=== PATIENT | female | born 1945 | race Caucasian/White ===

== ENCOUNTER → 2018-02-24 07:45 | Outpatient (CLI) | payer MEDICARE, OTHER, SELFPAY ==
[2018-02-24 08:11] LABS: Hematocrit 31.7 % (36-46); Hemoglobin 10.6 g/dL (12.0-16.0)
[2018-02-24 08:40] LABS: HEMOLYSIS < 15 (0-50)
[2018-02-24 08:46] LABS: Iron 29 ug/dL (37-170)
[2018-02-24 08:53] LABS: Cholesterol 216 mg/dL (140-199); HDL Cholesterol 78 mg/dL (40-60); LDL Cholesterol Calculated 118 mg/dL (<100); Triglycerides 101 mg/dL (35-150)
[2018-02-24 08:59] LABS: Percent Iron Saturation 7 % (15-50); Total Iron Binding Capacity 428 ug/dL (265-497); Transferrin 338 mg/dL (206-381)
[2018-02-24 09:17] LABS: Thyroid Stimulating Hormone 2.01 uIU/mL (0.47-4.68)
[2018-02-24 09:21] LABS: Ferritin 7.5 ng/mL (11.1-264)
[2018-02-24 10:07] LABS: Free T4, Direct Thyroxine 1.26 ng/dL (0.78-2.19)
== END ==
PROVIDERS: PCP Physician Assistant; Visit Provider Physician Assistant
DX: D64.9 Anemia, unspecified (principal); E78.5 Hyperlipidemia, unspecified; E03.9 Hypothyroidism, unspecified; R53.83 Other fatigue
CPT/HCPCS: 36415; 80061; 82728; 83540; 83550; 84439; 84443; 85014; 85018

== ENCOUNTER → 2018-06-10 10:48 | Outpatient (CLI) | payer MEDICARE, OTHER, SELFPAY ==
[2018-06-10 12:06] LABS: Hematocrit 39.6 % (36-46); Hemoglobin 13.3 g/dL (12.0-16.0)
[2018-06-10 12:23] LABS: HEMOLYSIS < 15 (0-50); Iron 82 ug/dL (37-170)
[2018-06-10 12:35] LABS: Percent Iron Saturation 25 % (15-50); Total Iron Binding Capacity 325 ug/dL (265-497); Transferrin 276 mg/dL (206-381)
== END ==
PROVIDERS: PCP Physician Assistant; Visit Provider Physician Assistant
DX: D50.9 Iron deficiency anemia, unspecified (principal)
CPT/HCPCS: 36415; 82728; 83540; 83550; 85014; 85018

== ENCOUNTER → 2018-06-22 07:59 | Outpatient (CLI) | payer MEDICARE, OTHER, SELFPAY ==
--- NOTE | 2018-06-22 | DI.MG.S_ITS ---
BILATERAL DIGITAL SCREENING MAMMOGRAM 3D/2D WITH CAD: 06/22/2018 CLINICAL: Routine screening. Family history of breast cancer. Comparison is made to exams dated: 06/21/2017 mammogram, 06/05/2016 mammogram, and 05/23/2015 mammogram - [facility]. The tissue of both breasts is heterogeneously dense. This may lower the sensitivity of mammography. Current study was also evaluated with a Computer Aided Detection (CAD) system. No significant masses, calcifications, or other findings are seen in either breast. There has been no significant interval change. IMPRESSION: NEGATIVE There is no mammographic evidence of malignancy. A 1 year screening mammogram is recommended.(06/23/2019) This exam was interpreted at Station ID: [id number]. NOTE: For mammograms, a report in lay terms will be sent to the patient. Approximately 15% of breast malignancies will not be visualized mammographically. In the management of a palpable breast mass, a negative mammogram must not discourage biopsy of a clinically suspicious lesion. Electronically Signed By: Vin hernandez/zurdo:06/22/2018 09:23:54 letter sent: Normal Exam ACR BI-RADS Category 1: Negative [id number]
== END ==
PROVIDERS: PCP Physician Assistant; Visit Provider Physician Assistant
DX: Z12.31 Encounter for screening mammogram for malignant neoplasm of breast (principal); Z80.3 Family history of malignant neoplasm of breast
CPT/HCPCS: 77063; 77067

== ENCOUNTER → 2018-08-24 13:13 | Outpatient (CLI) | payer MEDICARE, OTHER, SELFPAY ==
[2018-08-24 14:27] LABS: Thyroid Stimulating Hormone 1.89 uIU/mL (0.47-4.68)
[2018-08-24 16:19] LABS: Vitamin D 25 Hydroxy (D3) 34.7 ng/mL (30.0-100.0)
== END ==
PROVIDERS: PCP Physician Assistant; Visit Provider Physician Assistant
DX: E03.9 Hypothyroidism, unspecified (principal); R53.83 Other fatigue; M81.0 Age-related osteoporosis without current pathological fracture
CPT/HCPCS: 36415; 82306; 84443

== ENCOUNTER → 2019-04-07 07:12 | Outpatient (CLI) | payer MEDICARE, OTHER, SELFPAY ==
[2019-04-07 07:40] LABS: Add Manual Diff / Slide Review NO; Basophils Absolute Auto 100 /uL (0-100); Basophils Percent Auto 1.1 % (0-2); Eosinophils Absolute Auto 300 /uL (0-450); Eosinophils Percent Auto 6.4 % (2-4); Hematocrit 40.5 % (36-46); Hemoglobin 13.7 g/dL (12.0-16.0); Lymphocytes Absolute Auto 1100 /uL (1100-4500); Lymphocytes Percent Auto 22.9 % (25-40); Mean Corpuscular HGB Conc 33.8 % (30-36); Mean Corpuscular Hemoglobin 30.6 PG (26-34); Mean Corpuscular Volume 90.5 fL (80-100); Monocytes Absolute Auto 400 /uL (0-900); Neutrophils Absolute Auto 2900 /uL (1500-7000); Neutrophils Percent Auto 61.6 % (50-75); Platelet Count 282 X10^3/uL (150-400); Red Blood Cell Count 4.48 X10^6/uL (4.0-5.2); Red Cell Distribution Width 13.3 % (11.6-14.8); White Blood Cell Count 4.7 X10^3/uL (4.5-11.0)
[2019-04-07 07:56] LABS: Alanine Aminotransferase 18 IU/L (9-52); Albumin 4.4 g/dL (3.5-5.0); Albumin Globulin Ratio 1.4 (1.0-2.8); Alkaline Phosphatase 71 U/L (38-126); Aspartate Aminotransferase 26 IU/L (14-36); BUN Creatinine Ratio 18.6 (6-22); Bilirubin Total 0.5 mg/dL (0.2-1.3); Blood Urea Nitrogen 13 mg/dL (7-17); Calcium 9.5 mg/dL (8.4-10.2); Carbon Dioxide 31 mmol/L (22-32); Chloride 103 mmol/L (98-107); Cholesterol 239 mg/dL (140-199); Estimated Glomerular Filt Rate > 60.0 mL/min (>60); Globulin 3.1 g/dL (1.7-4.1); Glucose 95 mg/dL (80-110); HDL Cholesterol 69 mg/dL (40-60); HEMOLYSIS < 15 (0-50); LDL Cholesterol Calculated 138 mg/dL (<100); Potassium 4.4 mmol/L (3.4-5.1); Sodium 143 mmol/L (137-145); Total Protein 7.5 g/dL (6.3-8.2); Triglycerides 158 mg/dL (35-150)
[2019-04-07 08:45] LABS: Vitamin B12 765 pg/mL (239-931); Vitamin D 25 Hydroxy (D3) 25.6 ng/mL (30.0-100.0)
[2019-04-07 08:56] LABS: Thyroid Stimulating Hormone 3.04 uIU/mL (0.47-4.68)
[2019-04-07 09:04] LABS: Erythrocyte Sedimentation Rate 14 MM/HR (0-20)
== END ==
PROVIDERS: PCP Physician Assistant; Visit Provider Physician Assistant
DX: E03.9 Hypothyroidism, unspecified (principal); E78.5 Hyperlipidemia, unspecified; H53.8 Other visual disturbances; M81.0 Age-related osteoporosis without current pathological fracture; R41.3 Other amnesia
CPT/HCPCS: 36415; 80053; 80061; 82306; 82607; 84443; 85025; 85651

== ENCOUNTER → 2019-04-14 07:38 | Outpatient (CLI) | payer MEDICARE, OTHER, SELFPAY ==
--- NOTE | 2019-04-14 07:40 | DI.MRI.S_ITS ---
PROCEDURE: MR HEAD/BRAIN WO/W CON INDICATIONS: Visual change R eye; memory impairment; hx of migraines TECHNIQUE: Noncontrast axial T1 spin echo, axial T2 fast spin echo, sagittal and axial FLAIR, coronal T2 fast spin echo, axial gradient echo, axial diffusion and ADC through the brain. After the administration of contrast, axial and coronal 3D VIBE or T1 spin echo with fat saturation through the brain. COMPARISON: None. FINDINGS: Image quality: Excellent. CSF Spaces: Basal cisterns are patent. No extra-axial fluid collections. Ventricles are normal in size and shape. Brain: No midline shift. No intracranial bleeds or masses. There is mild diffuse cerebral normal. No abnormal intracranial enhancement. The brainstem appears normal. Diffusion-weighted images demonstrate no acute ischemic insults. No areas of encephalomalacia. No GRE weighted abnormalities identified in the brain parenchyma. A few, scattered, punctate foci of increased T2 signal noted in the subcortical white matter tracts compatible with mild chronic microvascular ischemic changes. Normal intravascular flow voids are present. Skull and face: Calvarial marrow is normal in signal. Orbits appear normal. Sinuses: Sinuses and mastoids appear clear. IMPRESSION: 1. No acute intracranial disease process. 2. No areas of acute or chronic infarction. 3. No abnormal intracranial mass or suspicious postcontrast enhancement. 4. There is mild, diffuse cerebral volume loss. 5. Mild subcortical white matter chronic microvascular ischemic changes. Dictated by: Malu Cooley MD, PhD on 04/14/2019 at 13:16 Approved by: Malu Cooley MD, PhD on 04/14/2019 at 13:20
== END ==
PROVIDERS: PCP Physician Assistant; Visit Provider Physician Assistant
DX: H53.8 Other visual disturbances (principal); R41.3 Other amnesia; Z86.69 Personal history of other diseases of the nervous system and sense organs
CPT/HCPCS: 70553

== ENCOUNTER → 2019-07-04 09:53 | Outpatient (CLI) | payer MEDICARE, OTHER, SELFPAY ==
--- NOTE | 2019-07-04 | DI.MG.S_ITS ---
BILATERAL DIGITAL SCREENING MAMMOGRAM 3D/2D WITH CAD: 07/04/2019 CLINICAL: Routine screening. Family history of breast cancer. Comparison is made to exams dated: 06/21/2017 mammogram, 06/22/2018 mammogram, and 06/05/2016 mammogram - [facility]. The tissue of both breasts is heterogeneously dense. This may lower the sensitivity of mammography. Current study was also evaluated with a Computer Aided Detection (CAD) system. There is a high density focal asymmetry in the left breast at 12 o'clock posterior depth. No other significant masses, calcifications, or other findings are seen in either breast. IMPRESSION: INCOMPLETE: NEEDS ADDITIONAL IMAGING EVALUATION The high density focal asymmetry in the left breast is indeterminate. Additional views with possible ultrasound are recommended. This exam was interpreted at Station ID: [id number]. NOTE: For mammograms, a report in lay terms will be sent to the patient. Approximately 15% of breast malignancies will not be visualized mammographically. In the management of a palpable breast mass, a negative mammogram must not discourage biopsy of a clinically suspicious lesion. Electronically Signed By: Aranza hassan/zurdo:07/04/2019 11:02:49 letter sent: Additional Imaging Needed ACR BI-RADS Category 0: Incomplete [id number]
== END ==
PROVIDERS: PCP Physician Assistant; Visit Provider Physician Assistant
DX: Z12.31 Encounter for screening mammogram for malignant neoplasm of breast (principal); Z80.3 Family history of malignant neoplasm of breast
CPT/HCPCS: 77063; 77067

== ENCOUNTER → 2019-07-21 09:45 | Outpatient (CLI) | payer MEDICARE, OTHER, SELFPAY ==
--- NOTE | 2019-07-21 | DI.MG.S_ITS ---
UNILATERAL LEFT DIGITAL DIAGNOSTIC MAMMOGRAM 3D/2D WITH ADDITIONAL VIEWS: 07/21/2019 CLINICAL: Additional evaluation requested from prior study. Comparison is made to exams dated: 07/04/2019 mammogram, 06/22/2018 mammogram, 06/21/2017 mammogram, 04/24/2011 mammogram, 04/27/2012 mammogram, and 05/09/2013 mammogram - [facility]. The tissue of left breast is heterogeneously dense. This may lower the sensitivity of mammography. There is a vague, rounded equal density focal asymmetry with an obscured margin in the left breast at 12 o'clock posterior depth. This has been stable for multiple years. No other significant masses or calcifications are seen in the breast. IMPRESSION: INCOMPLETE: NEEDS ADDITIONAL IMAGING EVALUATION The stable round focal asymmetry in the left breast is indeterminate. An ultrasound is recommended. This was performed immediately following this exam. This exam was interpreted at Station ID: [id number]. NOTE: For mammograms, a report in lay terms will be sent to the patient. Approximately 15% of breast malignancies will not be visualized mammographically. In the management of a palpable breast mass, a negative mammogram must not discourage biopsy of a clinically suspicious lesion. Electronically Signed By: Debo dalton/:07/21/2019 11:10:04 ACR BI-RADS Category 0: Incomplete [id number]
--- NOTE | 2019-07-21 09:47 | DI.US.S_ITS ---
ULTRASOUND OF LEFT BREAST: 07/21/2019 CLINICAL: Patient returns today to evaluate a focal asymmetry in the left breast. Comparison is made to exams dated: 07/21/2019 mammogram, 07/04/2019 mammogram, 06/22/2018 mammogram, 06/21/2017 mammogram, 06/05/2016 mammogram, and 05/23/2015 mammogram - [facility]. Real-time ultrasound of the left breast was performed. Malcolm scale images of the real-time examination were reviewed. No significant abnormalities were seen sonographically in the left breast. Dense fibroglandular tissue is seen in the 12:00 region, likely corresponding to the mammographic asymmetry. IMPRESSION: NEGATIVE There is no sonographic evidence of malignancy. Stable asymmetry in the left breast corresponds to normal dense breast tissue. Return to annual mammogram screening schedule is recommended. Findings and recommendations were conveyed to the patient at time of exam. This exam was interpreted at Station ID: [id number]. Electronically Signed By: Debo dalton/:07/21/2019 11:11:42 letter sent: Normal Exam Ultrasound BI-RADS: 1 Negative
== END ==
PROVIDERS: PCP Physician Assistant; Visit Provider Physician Assistant
DX: R92.8 Other abnormal and inconclusive findings on diagnostic imaging of breast (principal); N64.89 Other specified disorders of breast
CPT/HCPCS: 76642; 77065; G0279

== ENCOUNTER → 2019-08-14 18:41 | Outpatient (CLI) | payer MEDICARE, OTHER, SELFPAY | PROVIDERS: PCP Physician Assistant; Visit Provider Physician Assistant | DX: N30.01 Acute cystitis with hematuria (principal) | CPT/HCPCS: 87077; 87086; 87186 ==

== ENCOUNTER → 2019-08-18 06:56 | Outpatient (CLI) | payer MEDICARE, OTHER, SELFPAY ==
[2019-08-18 09:27] LABS: Alanine Aminotransferase 26 IU/L (<35); Albumin 4.1 g/dL (3.5-5.0); Albumin Globulin Ratio 1.4 (1.0-2.8); Alkaline Phosphatase 65 U/L (38-126); Aspartate Aminotransferase 44 IU/L (14-36); BUN Creatinine Ratio 24.3 (6-22); Bilirubin Total 0.5 mg/dL (0.2-1.3); Blood Urea Nitrogen 17 mg/dL (7-17); Calcium 9.2 mg/dL (8.4-10.2); Carbon Dioxide 33 mmol/L (22-32); Chloride 102 mmol/L (98-107); Cholesterol 262 mg/dL (140-199); Estimated Glomerular Filt Rate > 60.0 mL/min (>60); Glucose 79 mg/dL (80-110); HDL Cholesterol 85 mg/dL (40-60); HEMOLYSIS < 15 (0-50); LDL Cholesterol Calculated 140 mg/dL (<100); Potassium 3.8 mmol/L (3.4-5.1); Sodium 139 mmol/L (137-145); Total Protein 7.1 g/dL (6.3-8.2); Triglycerides 186 mg/dL (35-150)
[2019-08-18 09:37] LABS: Vitamin D 25 Hydroxy (D3) 18.4 ng/mL (30.0-100.0)
[2019-08-18 09:51] LABS: Thyroid Stimulating Hormone 1.39 uIU/mL (0.47-4.68)
== END ==
PROVIDERS: PCP Physician Assistant; Visit Provider Physician Assistant
DX: E03.9 Hypothyroidism, unspecified (principal); E78.5 Hyperlipidemia, unspecified; M81.0 Age-related osteoporosis without current pathological fracture
CPT/HCPCS: 36415; 80053; 80061; 82306; 84443

== ENCOUNTER → 2019-11-29 09:56 | Outpatient (CLI) | payer MEDICARE, OTHER, SELFPAY ==
[2019-11-29 12:14] LABS: Appearance Urine UA CLEAR; Bilirubin Urine UA NEGATIVE (NEGATIVE); Color Urine UA YELLOW; Glucose Urine UA NEGATIVE (Negative); Ketones Urine UA NEGATIVE (NEGATIVE); Leukocyte Esterase Urine UA 1+ (NEGATIVE); Nitrite Urine UA NEGATIVE (Negative); Occult Blood Urine UA TRACE-LYSED (Negative); Protein Urine UA NEGATIVE (Negative); Specific Gravity Urine UA <=1.005 (1.000-1.035); Urobilinogen Urine UA 0.2 E.U./dL (0.2)
[2019-11-29 12:32] LABS: pH Urine UA 6.5 (4.5-8.0)
[2019-11-29 12:33] LABS: Amorphous Sediment Urine 1+; Bacteria Urine Moderate (10-30); Culture Indicated Urine Specimen Cultured; RBC Urine 0-1/HPF (0-5/HPF); Squamous Epithelial Cell Urine 1-5 /HPF (0-5/HPF); WBC Urine 5-10/HPF (0-5/HPF)
== END ==
PROVIDERS: PCP Physician Assistant; Visit Provider Nurse Practitioner Family
DX: R30.0 Dysuria (principal)
CPT/HCPCS: 81001; 87086

== ENCOUNTER 2020-03-09 19:58 | Emergency (ER) | payer MEDICARE, OTHER, SELFPAY ==
[2020-03-09 20:05] VITALS: BP 180/85; PULSE 97; RESP 15; TEMP 37.1; O2SAT 97; BMI 26.1
--- NOTE | 2020-03-09 20:26 | ED.FEMALEGU ---
HPI - Female Genitourinary General Chief complaint: Urogenital-Female Stated complaint: thinks she has a UTI Time Seen by Provider: 03/09/20 20:00 Source: patient Mode of arrival: Ambulatory Limitations: no limitations History of Present Illness HPI Narrative: 74-year-old female nonsmoker with relatively recently diagnosed myasthenia gravis presents with her 4th urinary tract infection since that diagnosis. She states that over the past day or so she has had urinary frequency, urgency and dysuria. She denies any blood. She denies any fever, chills nor nausea or vomiting. She denies any back pain. She denies vaginal bleeding or discharge MD Complaint: dysuria and UTI Onset (ago): hour(s) Location: suprapubic Severity: mild Quality: Burning Duration: constant Relieving factors: none Exacerbating factors: urination Urinary symptoms: Difficulty Urinating, Dysuria, Foul Smelling Urine, Frequency and Urgency Patient : No Related Data Home Medications Medication Instructions Recorded Confirmed calcium carbonate 600 mg calcium 600 mg PO QD-BID tab 11/17/18 11/29/19 (1,500 mg) tablet bepotastine besilate 1.5 % eye 1 drop EYE-BOTH BID PRN ml 01/26/19 11/29/19 drops multivitamin 1 tab PO DAILY 04/06/19 11/29/19 cholecalciferol (vitamin D3) 25 1,000 unit PO DAILY 11/29/19 11/29/19 mcg (1,000 unit) capsule prednisone 10 mg tablet 15 mg PO DAILY tab 11/29/19 11/29/19 pyridostigmine bromide 60 mg tablet 60 mg PO BID tab 11/29/19 11/29/19 Previous Rx's Medication Instructions Recorded ipratropium bromide 0.03 % nasal 2 spray NASAL BID PRN #30 ml 11/18/18 spray olopatadine 0.1 % eye drops 0.1 % EYE-BOTH BID PRN #5 ml 11/21/18 cephalexin 500 mg capsule 500 mg PO BID #10 cap 11/29/19 famotidine 20 mg tablet 20 mg PO DAILY #90 tab 12/27/19 levothyroxine 75 mcg tablet 75 mcg PO QAM #90 tab 12/27/19 cephalexin [Keflex] 500 mg PO QID 7 Days #28 cap 03/09/20 Allergies Allergy/AdvReac Type Severity Reaction Status Date / Time latex [LATEX] Allergy Intermediate NASTY RASH Verified 11/29/19 09:41 meperidine [MEPERIDINE] Allergy Mild (DEMEROL) Verified 11/29/19 09:41 N/V NSAIDS (Non-Steroidal AdvReac Severe UPSET Verified 11/29/19 09:41 Anti-Inflamma STOMACH [NSAIDS (NON-STEROIDAL ANTI-INFLAMMA] tramadol [TRAMADOL] AdvReac Severe VIOLENTLY Verified 11/29/19 09:41 ILL, BLOATING, DIZZY adhesive [ADHESIVE] AdvReac Intermediate RASH IF Verified 11/29/19 09:41 >12 HOURS, TOLERATES BANDAIDS oxycodone AdvReac Intermediate Nausea and Verified 11/29/19 09:41 vomiting (dry heaves) Dtxyldd-Fpv-Keu Reductase AdvReac Intermediate DEPRESSION Verified 11/29/19 09:41 Inhibitor [[id number] REDUCTASE INHIBITOR] Review of Systems Constitutional Constitutional: Denies chills, Denies fatigue, Denies fever(s), Denies frequent falls, Denies lethargy and Denies weakness Eyes Eyes: Denies change in vision, Denies eye discharge, Denies irritation and Denies loss of vision ENT Ears, Nose, Mouth, and Throat: Denies change in voice, Denies dizziness, Denies neck pain, Denies sore throat and Denies throat swelling Cardiovascular Cardiovascular: Denies chest pain, Denies irregular heart rhythm, Denies lightheadedness, Denies palpitations, Denies dyspnea, Denies dyspnea on exertion and Denies orthopnea Respiratory Respiratory: Denies cough, Denies dyspnea, Denies dyspnea on exertion and Denies wheezing Gastrointestinal Gastrointestinal: Denies abdominal pain, Denies change in bowel habits, Denies diarrhea, Denies nausea and Denies vomiting Genitourinary Genitourinary: Reports dysuria and Reports dysuria Genitourinary: Reports dysuria and Reports dysuria Musculoskeletal Musculoskeletal: Denies neck pain and Denies numbness Integumentary/Breasts Skin/Breast: Denies pruritus, Denies erythema, Denies rash and Denies wounds Neurologic Neurologic: Denies behavioral changes, Denies confusion, Denies dizziness, Denies frequent falls, Denies loss of vision, Denies numbness and Denies weakness Psychiatric Psychiatric: Denies anxiety, Denies behavioral changes, Denies confusion, Denies depression, Denies homicidal ideation and Denies suicidal ideation Endocrine Endocrine: Denies fatigue, Denies flushing and Denies palpitations Hematologic/Lymphatic Hematologic/Lymphatic: Denies easy bruising Allergic/Immunologic Allergic/Immunologic: Denies urticaria, Denies throat swelling and Denies wheezing Patient History Medical History (Updated 03/09/20 @ 20:30 by Nicko Ugalde DO) Asthma (Chronic) Gastroesophageal reflux disease (Chronic 12/14/11) Hyperlipidemia (Resolved) Hypothyroidism (Chronic) Migraine without status migrainosus, not intractable (Chronic 04/01/11) Osteopenia of multiple sites (Chronic) Osteoporosis (Chronic) Sleep apnea (Resolved) Surgical History (Updated 11/17/18 @ 16:49 by QUANG Arndt) History of lumbar fusion (Inactive 12/2017) Status post breast biopsy Status post hysterectomy Family History (Updated 11/04/16 @ 00:00 by Conversion Provider) Mother RA (rheumatoid arthritis) Lupus Sister Breast cancer Substance Use Type: does not use Exam Narrative Exam Narrative: GEN: AOx3 and in mild distress EYES: Pupils are equal, round, and reactive to light and accommodation. Extraoccular muscles are intact bilaterally. There is no subconjunctival hemorrhage or exudate. CHEST: Lungs are clear to auscultation bilaterally and free of wheezes, rales, or rhonchi. Heart rate is regular rhythm, there are no murmurs, clicks, rubs, or gallops. There is no chest wall tenderness. ABD: Abdomen is soft and minimally tender in the suprapubic region. There is no guarding or rebound. Bowel sounds are normal in all 4 quadrants. There is no mass or organomegaly. BACK: no CVA tenderness EXT: Full painless ROM of all extremities with no loss of sensation or strength. SKIN: Warm, pink, and dry. No erythema or rash Initial Vital Signs Initial Vital Signs: Vital Signs Temperature 98.7 F 03/09/20 20:05 Pulse Rate 97 H 03/09/20 20:05 Respiratory Rate 15 03/09/20 20:05 Blood Pressure 180/85 H 03/09/20 20:05 Pulse Oximetry 97 03/09/20 20:05 Course Orders Ordered: ED Orders 03/09/20 20:10 Urinalysis and Microscopic Stat Urine Culture Stat Discontinued Medications Cefazolin Sodium (Keflex 250 Mg Prepack) 1 bottle MISC SEEINSTR ONE Stop: 03/09/20 20:31 Last Admin: 03/09/20 20:38 Dose: 1 1000units Documented by: EMANUELOTEJose Vital Signs Vital signs: Vital Signs - 8 hr 03/09/20 20:05 03/09/20 20:50 Temperature 98.7 F Pulse Rate 97 H 84 Respiratory Rate 15 15 Blood Pressure 180/85 H 131/72 Pulse Oximetry 97 97 MDM - Female Genitourinary Lab Data Labs: Lab Results 03/09/20 Range/Units 20:10 Urine Color Yellow Urine Appearance Cloudy Urine pH 6.0 (4.5-8.0) Ur Specific [place] 1.020 (1.000-1.035) Urine Protein Negative (Negative) Urine Glucose (UA) Negative (Negative) g/dL Urine Ketones Trace H (NEGATIVE) Urine Occult Blood 1+ H (Negative) Urine Nitrate Negative (Negative) Urine Bilirubin Negative (NEGATIVE) Urine Urobilinogen 0.2 (0.2) E.U./dL Ur Leukocyte Esterase 2+ H (NEGATIVE) Urine RBC 0-1/hpf (0-5/HPF) Urine WBC >100/hpf H (0-5/HPF) Ur Squamous Epith Cells 0-1 /hpf (0-5/HPF) Amorphous Sediment 1+ Urine Bacteria Moderate (10-30) H (None) Urine Mucus 1+ H (Negative) Ur Culture Indicated? Specimen cultured Discharge Plan Departure Patient Disposition: Home Clinical Impression: Cystitis, Acute UTI Discharge Date/Time: 03/09/20 20:51 Instructions: DI for Urinary Tract Infection (UTI) Activity Restrictions/Additional Instructions: *You have been diagnosed with [ acute UTI ] *What to do: *Take medications as directed *Follow up with your primary care provider in 2-3 days, call for an appointment. Let them know you were seen in the Emergency Department and that we ask that you be seen in follow up *Return to ER if you should have any new, worsening or concerning symptoms Prescriptions: New cephalexin [Keflex] 500 mg capsule 500 mg PO QID 7 Days Qty: 28 RF: 0 No Action calcium carbonate [Calcium 600] 600 mg calcium (1,500 mg) tablet 600 mg PO QD-BID RF: 0 ipratropium bromide 0.03 % spray,non-aerosol 2 spray NASAL BID PRN (Reason: allergy symptoms) Qty: 30 RF: 0 olopatadine [Patanol] 0.1 % drops 0.1 % EYE-BOTH BID PRN (Reason: allergies) Qty: 5 RF: 3 famotidine 20 mg tablet 20 mg PO DAILY Qty: 90 RF: 1 levothyroxine [Synthroid] 75 mcg tablet 75 mcg PO QAM Qty: 90 RF: 1 bepotastine besilate 1.5 % drops 1 drop EYE-BOTH BID PRNRF: 0 pyridostigmine bromide 60 mg tablet 60 mg PO BID RF: 0 multivitamin tablet 1 tab PO DAILY RF: 0 prednisone 10 mg tablet 15 mg PO DAILY RF: 0 cholecalciferol (vitamin D3) 25 mcg (1,000 unit) capsule 1,000 unit PO DAILY RF: 0 cephalexin 500 mg capsule 500 mg PO BID Qty: 10 RF: 0
[2020-03-09 20:27] LABS: Appearance Urine UA CLOUDY; Bilirubin Urine UA NEGATIVE (NEGATIVE); Color Urine UA YELLOW; Glucose Urine UA NEGATIVE (Negative); Ketones Urine UA TRACE (NEGATIVE); Leukocyte Esterase Urine UA 2+ (NEGATIVE); Nitrite Urine UA NEGATIVE (Negative); Occult Blood Urine UA 1+ (Negative); Protein Urine UA NEGATIVE (Negative); Urobilinogen Urine UA 0.2 E.U./dL (0.2)
[2020-03-09 20:33] LABS: Amorphous Sediment Urine 1+; Bacteria Urine Moderate (10-30); Culture Indicated Urine Specimen Cultured; Mucus Urine 1+ (Negative); RBC Urine 0-1/HPF (0-5/HPF); Squamous Epithelial Cell Urine 0-1 /HPF (0-5/HPF); WBC Urine >100/HPF (0-5/HPF)
[2020-03-09] MEDS: cephALEXin 250 MG PREPACK 1 BOTTLE MISC (20:38)
[2020-03-09 20:50] VITALS: BP 131/72; PULSE 84; RESP 15; O2SAT 97
== END 2020-03-09 20:51 | disposition home or self-care (01) ==
PROVIDERS: Emergency Provider Emergency Medicine
DX: N30.00 Acute cystitis without hematuria (principal)
CPT/HCPCS: 81001; 87077; 87086; 87186; 99281; 99283

== ENCOUNTER → 2020-05-18 11:13 | Outpatient (CLI) | payer MEDICARE, OTHER, SELFPAY ==
[2020-05-20 13:42] LABS: COVID19 Sendout Not Detected (Not Detect)
== END ==
PROVIDERS: PCP Nurse Practitioner Family; Visit Provider Physician Assistant
DX: Z11.59 Encounter for screening for other viral diseases (principal)
CPT/HCPCS: 87635

== ENCOUNTER 2020-05-21 06:47 | Day surgery (SDC) | payer MEDICARE, OTHER, SELFPAY ==
[2020-05-21 07:29] VITALS: BP 107/70; PULSE 72; RESP 16; TEMP 36.9; O2SAT 99; BMI 25.0
[2020-05-21] MEDS: LACTATED RINGERS 1,000 ML 42 ML IV (07:30)
--- NOTE | 2020-05-21 07:33 | PM.HP.1 ---
History of Present Illness History of Present Illness Date Patient Seen: 05/21/20 Time Patient Seen: 07:39 [place] [facility] [place]ative: 74F with myasthenia gravis here for elective screening colonoscopy. No interval health changes in past 30 days. Please see H&P from 05/02 for further detail. Patient History Medical History Asthma (Chronic) Gastroesophageal reflux disease (Chronic 12/14/11) Hyperlipidemia (Resolved) Hypothyroidism (Chronic) Menopause (Acute) Migraine without status migrainosus, not intractable (Chronic 04/01/11) Osteopenia of multiple sites (Chronic) Osteoporosis (Chronic) Screening for malignant neoplasm of colon (Acute) Sleep apnea (Resolved) Surgical History History of lumbar fusion (Inactive 12/2017) Hx of cholecystectomy (Acute) Status post breast biopsy Status post hysterectomy Family & Social History Family History Mother RA (rheumatoid arthritis) Lupus Sister Breast cancer Father Cancer Social History: household members spouse Tobacco & Substance use: Smoking Status Never smoker alcohol intake current Substance Use Type does not use Meds Home Medications and Allergies Home Medications Medication Instructions Recorded Confirmed Type calcium carbonate 600 mg calcium 600 mg PO DAILY tab 11/17/18 05/21/20 History (1,500 mg) tablet ipratropium bromide 0.03 % nasal 2 spray NASAL BID PRN #30 ml 11/18/18 05/21/20 Rx spray olopatadine 0.1 % eye drops 0.1 % EYE-BOTH BID PRN #5 ml 11/21/18 05/21/20 Rx multivitamin 1 tab PO DAILY 04/06/19 05/21/20 History cholecalciferol (vitamin D3) 25 1,000 unit PO DAILY 11/29/19 05/21/20 History mcg (1,000 unit) capsule famotidine 20 mg tablet 20 mg PO DAILY #90 tab 12/27/19 05/21/20 Rx estradiol 1 gram VAG 3XW #42.5 gram 03/28/20 05/21/20 Rx mycophenolate mofetil 250 mg 750 mg PO BID 03/28/20 05/21/20 History capsule prednisone 10 mg tablet 20 mg PO DAILY tab 03/28/20 05/21/20 History pyridostigmine bromide 60 mg tablet 60 mg PO QID tab 03/28/20 05/21/20 History levothyroxine 75 mcg tablet 75 mcg PO QAM #90 tab 04/12/20 05/21/20 Rx Allergies Allergy/AdvReac Type Severity Reaction Status Date / Time latex [LATEX] Allergy Intermediate NASTY RASH Verified 05/21/20 07:14 meperidine [MEPERIDINE] Allergy Mild (DEMEROL) Verified 05/21/20 07:14 N/V NSAIDS (Non-Steroidal AdvReac Severe UPSET Verified 05/21/20 07:14 Anti-Inflamma STOMACH [NSAIDS (NON-STEROIDAL ANTI-INFLAMMA] tramadol [TRAMADOL] AdvReac Severe VIOLENTLY Verified 05/21/20 07:14 ILL, BLOATING, DIZZY adhesive [ADHESIVE] AdvReac Intermediate RASH IF Verified 05/21/20 07:14 >12 HOURS, TOLERATES BANDAIDS oxycodone AdvReac Intermediate Nausea and Verified 05/21/20 07:14 vomiting (dry heaves) Xfobxwv-Ggk-Naq Reductase AdvReac Intermediate DEPRESSION Verified 05/21/20 07:14 Inhibitor [[id number] REDUCTASE INHIBITOR] Review of Systems Review of Systems Narrative: A 10 point review of systems is negative except as noted in the HPI Exam Narrative Exam Narrative: General-no acute distress, well nourished HEENT-moist mucous membranes, no scleral icterus Neck-supple, no lymphadenopathy Chest- non labored respirations, clear to auscultation bilaterally Cardiac-regular rate no peripheral edema Abdomen-soft, nontender, non distended Extremities-warm, well perfused Neurological-alert and oriented, no focal deficits Assessment & Plan Assessment and plan (1) Screening for malignant neoplasm of colon: Status: Acute Assessment & Plan narrative: 74-year-old woman with myasthenia gravis needs a screening colonoscopy. I described the nature of the procedure and its risks of bleeding infection perforation missed diagnosis. I told her that I think that the procedure should be performed with an anesthesiologist because of her risk of respiratory insufficiency given her myasthenia gravis. COVID-19 COVID-19 status: Negative
[2020-05-21 08:20] VITALS: BP 90/58; PULSE 71; RESP 16; TEMP 36.2; O2SAT 98
--- NOTE | 2020-05-21 08:21 | PM.OP.ENDO ---
Operative Date/Time/Diagnoses Date of procedure: 05/21/20 Time of procedure: 08:21 Pre-op diagnosis: screening colonoscopy Post-op diagnosis: same Procedure & Clinicians Study performed: colonoscopy Same procedure as scheduled: Yes Indications: Routine screening, last colonoscopy 10 years ago and normal Surgeon: Teofilo Lazar Procedure Notes SCOAP/Timeout: Performed Procedure in detail: Patient placed in left lateral recumbent position. Time out was performed. Procedural sedation was by anesthesia. Examination began with a thorough inspection of the perianal area there was no evidence of fissures, fistulae, external hemorrhoids or cutaneous malignancy. The colonoscopy scope was then placed into the rectum the the lumen was insufflated with air. The scope was carefully advanced forward. Ultimately the cecum was intubated and confirmed by identification of the ileocecal valve and the confluence of the taenia. The scope was then slowly withdrawn examining colon thoroughly in all directions. In the rectum the rectal columns were identified and retroflexion of the scope was performed for inspection of the distal rectum and anal canal. The colonoscopy was notable for the followin. Quality of the preparation-fair 2. No masses or polyps 3. Grade 1 internal hemorrhoids Scope withdrawal time: 6 Specimen(s): none sent Complications: none Impression: Normal colonoscopy Post-procedure Recommendations: Colonscopy in 10 years Disposition: same day surgery
[2020-05-21 08:23] VITALS: BP 94/57; PULSE 75; RESP 14; O2SAT 99
[2020-05-21 08:28] VITALS: BP 107/69; PULSE 72; RESP 18; O2SAT 99
[2020-05-21 08:32] VITALS: BP 118/62; PULSE 77; RESP 16; O2SAT 99
[2020-05-21 08:56] VITALS: BP 119/80; PULSE 79; RESP 20; TEMP 36.1; O2SAT 99
== END 2020-05-21 08:45 | disposition home or self-care (01) ==
PROVIDERS: PCP Nurse Practitioner Family; Referring Provider Nurse Practitioner Family; Visit Provider Surgery
PROC: 0DJD8ZZ Inspection of Lower Intestinal Tract, Via Natural or Artificial Opening Endoscopic (ICD-10-PCS; CPT 45378; principal; 2020-05-21 07:45)
DX: Z12.11 Encounter for screening for malignant neoplasm of colon (principal); G70.00 Myasthenia gravis without (acute) exacerbation; G47.33 Obstructive sleep apnea (adult) (pediatric); K64.0 First degree hemorrhoids
CPT/HCPCS: G0121; J2704

== ENCOUNTER 2020-05-27 09:59 | Emergency (ER) | payer MEDICARE, OTHER, SELFPAY ==
[2020-05-27 10:12] VITALS: BP 153/68; PULSE 85; RESP 16; TEMP 36.4; O2SAT 97
--- NOTE | 2020-05-27 10:16 | DI.RAD.S_ITS ---
PROCEDURE: XR HIP W PEL IF DONE LT 2V INDICATIONS: pain left hip. may go from ED WR. TECHNIQUE: AP pelvis with lateral view(s) of the left hip(s). COMPARISON: [facility], HIP 2V RIGHT, 10/01/2012, 16:43. [facility], , HIP 2V LEFT, 10/01/2012, 16:43. [facility], , [id number] W PEL IF PERFORMED, 07/27/2017, 10:59. FINDINGS: Bones: No fractures or dislocations. Pelvic ring appears intact. No suspicious bony lesions. Lumbosacral fixation hardware can be seen. There is at least moderate superior joint space narrowing seen of both hips, with associated remodeling changes with subchondral sclerosis and osteophyte formation. Soft tissues: The visualized bowel gas pattern is normal. No suspicious soft tissue calcifications. IMPRESSION: At least moderate degenerative changes seen in both hips, without an acute abnormality identified. If it would be helpful for clinical management decision making, please consider a dedicated hip MRI for further evaluation (assuming that there is no contraindication). If there is strong clinical concern for a labral abnormality, this should be performed according to the arthrogram protocol. Dictated by: Brian Holden M.D. on 05/27/2020 at 9:50 Approved by: Brian Holden M.D. on 05/27/2020 at 9:52
--- NOTE | 2020-05-27 11:08 | ED_ITS ---
HPI - Extremity Injury (Lower) <QUANG Lane - Last Filed: 05/27/20 20:16> General Chief Complaint: Extremity Injury, Lower Stated Complaint: left hip pain Time Seen by Provider: 05/27/20 11:08 Source: patient Mode of arrival: Ambulatory Limitations: no limitations History of Present Illness HPI Narrative: This is a 74 year female, nonsmoker, who has history of osteopenia presents to ED with chief complain of nontraumatic left lateral hip pain for last 2-3 weeks and worsening since this morning. Patient reports unable to recall any injuries all falls. Patient states she is very active and frequently hikes and thought initially pulled muscle. She reports pain increases with taking big steps and externally rotating or abducting her left leg. Reports when she takes her full weight on affected leg she feels sharp and stabbing pain which increases from 2/10 to 10/10. Patient reports intact sensation and denies tingling or numbness. Patient has history of myasthenia g ravis and takes prednisone daily. Patient is unable to tolerate NSAIDs due to GI irritation. Related Data Home Medications Medication Instructions Recorded Confirmed calcium carbonate 600 mg calcium 600 mg PO DAILY tab 11/17/18 05/29/20 (1,500 mg) tablet multivitamin 1 tab PO DAILY 04/06/19 05/29/20 cholecalciferol (vitamin D3) 25 1,000 unit PO DAILY 11/29/19 05/29/20 mcg (1,000 unit) capsule mycophenolate mofetil 250 mg 750 mg PO BID 03/28/20 05/29/20 capsule prednisone 10 mg tablet 20 mg PO DAILY tab 03/28/20 05/29/20 pyridostigmine bromide 60 mg tablet 60 mg PO QID tab 03/28/20 05/29/20 acetaminophen 650 mg 650 mg PO BID PRN tab 05/29/20 05/29/20 tablet,extended release Previous Rx's Medication Instructions Recorded ipratropium bromide 0.03 % nasal 2 spray NASAL BID PRN #30 ml 11/18/18 spray olopatadine 0.1 % eye drops 0.1 % EYE-BOTH BID PRN #5 ml 11/21/18 famotidine 20 mg tablet 20 mg PO DAILY #90 tab 12/27/19 estradiol 1 gram VAG 3XW #42.5 gram 03/28/20 diclofenac sodium [Voltaren] 2 gram TOP QID PRN #100 gram 05/27/20 levothyroxine 88 mcg tablet 88 mcg PO DAILY #90 tab 05/31/20 Allergies Allergy/AdvReac Type Severity Reaction Status Date / Time latex [LATEX] Allergy Intermediate NASTY RASH Verified 05/29/20 10:02 meperidine [MEPERIDINE] Allergy Mild (DEMEROL) Verified 05/29/20 10:02 N/V NSAIDS (Non-Steroidal AdvReac Severe UPSET Verified 05/29/20 10:02 Anti-Inflamma STOMACH [NSAIDS (NON-STEROIDAL ANTI-INFLAMMA] tramadol [TRAMADOL] AdvReac Severe VIOLENTLY Verified 05/29/20 10:02 ILL, BLOATING, DIZZY adhesive [ADHESIVE] AdvReac Intermediate RASH IF Verified 05/29/20 10:02 >12 HOURS, TOLERATES BANDAIDS oxycodone AdvReac Intermediate Nausea and Verified 05/29/20 10:02 vomiting (dry heaves) Zkispzq-Xkq-Pev Reductase AdvReac Intermediate DEPRESSION Verified 05/29/20 10:02 Inhibitor [[id number] REDUCTASE INHIBITOR] Review of Systems <QUANG Lane - Last Filed: 05/27/20 20:16> Review of Systems Narrative: General: Denies fever, chills, fatigue, malaise, sweats. HEENT: Denies sinus pain, ear pain, sore throat, difficulty swallowing, dizziness. Respiratory: Denies dyspnea, cough, wheezing, hemoptysis, sputum. Cardiovascular: Denies chest pain, palpitations, orthopnea, edema. Gastrointestinal: Denies nausea, vomiting, abdominal pain, diarrhea, constipation, melena. : Denies dysuria, frequency, incontinence, hematuria, urinary retention. Musculoskeletal: See HPI Skin: Denies rash, skin lesions, or other. Neurologic: Denies weakness, headache, numbness, change in speech, confusion, seizures, incoordination. Psychiatric: No concerning psychosocial issues. 12-point review of systems is negative except for those stated above. Patient History <QUANG Lane - Last Filed: 05/27/20 20:16> Medical History (Updated 06/11/20 @ 00:00 by ) Asthma (Chronic) Bunion of great toe of right foot (Acute 2017) FH: cholecystectomy (Acute) Gastroesophageal reflux disease (Chronic 12/14/11) Hyperlipidemia (Resolved) Hypothyroidism (Chronic) Inflamed skin tag (Acute) Menopause (Acute) Migraine without status migrainosus, not intractable (Chronic 04/01/11) Muscle tenderness (Acute) Osteopenia of multiple sites (Chronic) Osteoporosis (Chronic) Screening for malignant neoplasm of colon (Acute) Sleep apnea (Resolved) Surgical History (Updated 05/27/20 @ 17:[address]) History of lumbar fusion (Inactive 12/2017) Hx of cataract surgery (Acute) Hx of cholecystectomy (Acute) S/P partial hysterectomy (Acute) Status post breast biopsy Status post hysterectomy Family History Mother RA (rheumatoid arthritis) Lupus Sister Breast cancer Father Cancer Social History (Updated 04/17/20 @ 10:04 by Sophie Mcnair RN) marital status: household members: spouse occupational status: previously employed Smoking Status: Never smoker second hand exposure: Yes (I grew up with parents that smoked and my first smoked.) alcohol intake: former substance use type: does not use Smoking Status: Never smoker alcohol intake frequency: 0-2 drinks per day Substance Use Type: does not use Exam <QUANG Lane - Last Filed: 05/27/20 20:16> Narrative Exam Narrative: General appearance: well developed, well nourished, in no acute distress. Head: normocephalic, atraumatic, no scalp lesions, non-tender. ENT: Hearing grossly intact. Nose without bleeding, purulent discharge. Airway patent. Neck/Thyroid: neck supple, full range of motion, no visible masses or meningeal signs. No JVD, non-tender without lymphadenopathy. Skin: no suspicious rashes, lesions over visible areas. Warm and dry and approp riate color for ethnicity. Heart: no clubbing, no cyanosis, no edema. S1 and S2 normal. RRR w/o murmurs, clicks, or bruits. Lungs: Breathing even and unlabored. No stridor. No accessory muscles used. Able to speak in full sentences. Chest: normal shape and expansion. Abdomen: non-obese, non-distended. Neurologic: alert and oriented. Cognitive exam, RESOURCE DEVELOPMENT DIRECTOR and PNS grossly intact on informal exam. Psych: good eye contact, normal affect. Initial Vital Signs Initial Vital Signs: Vital Signs Temperature 97.6 F 05/27/20 10:12 Pulse Rate 85 05/27/20 10:12 Respiratory Rate 16 05/27/20 10:12 Blood Pressure 153/68 H 05/27/20 10:12 Pulse Oximetry 97 05/27/20 10:12 Extrem General: normal to inspection and full ROM Left lower extremity: hip/thigh Details: normal to inspection, tenderness Location: of the hip Location: laterally, normal ROM and other (No erythema); no swelling, no ecchymosis, no crepitus, no deformity and no unusual warmth, knee Details: normal to inspection; no tenderness and lower leg Details: normal to inspection; no tenderness <Baron Yost MD - Last Filed: 06/11/20 09:04> Initial Vital Signs Initial Vital Signs: Vital Signs Temperature 97.6 F 05/27/20 10:12 Pulse Rate 85 05/27/20 10:12 Respiratory Rate 16 05/27/20 10:12 Blood Pressure 153/68 H 05/27/20 10:12 Pulse Oximetry 97 05/27/20 10:12 Scores <QUANG Lane - Last Filed: 05/27/20 20:16> GCS Howard coma scale eye opening: Spontaneous Maggi coma scale verbal response: Orientated Maggi coma scale motor response: Obey commands Maggi coma scale total score: 15 Course <QUANG Lane - Last Filed: 05/27/20 20:16> Orders Ordered: ED Orders 05/27/20 10:16 XR hip w pel if done LT 2V Stat Vital Signs Vital signs: Vital Signs - 8 hr 05/27/20 10:12 05/27/20 11:14 05/27/20 12:08 Temperature 97.6 F 97.8 F Pulse Rate 85 70 68 Respiratory Rate 16 Blood Pressure 153/68 H 142/91 H 117/63 Pulse Oximetry 97 97 97 <Baron Yost MD - Last Filed: 06/11/20 09:04> Orders Ordered: ED Orders 05/27/20 10:16 XR hip w pel if done LT 2V Stat Vital Signs Vital signs: Vital Signs - 8 hr 05/27/20 10:12 05/27/20 11:14 05/27/20 12:08 Temperature 97.6 F 97.8 F Pulse Rate 85 70 68 Respiratory Rate 16 Blood Pressure 153/68 H 142/91 H 117/63 Pulse Oximetry 97 97 97 MDM - Extremity Injury (Lower) <QUANG Lane - Last Filed: 05/27/20 20:16> Differential Diagnosis Differential diagnosis: Likely fracture of hip and other (hip strain, DJD in hip) Medical Records Attestation: I reviewed the patient's medical records. Lab Data Attestation: I reviewed the patient's lab results. Labs: Urine Dip Bedside Urine Glucose Negative Bedside Urine Bilirubin - Negative Bedside Urine Ketone - Negative Urine Specific [place] 1.010 Bedside Urine Occult Blood - Negative Bedside Urine pH 6.0 Bedside Urine Protein - Negative Bedside Urine Urobilinogen - Negative Bedside Urine Nitrite - Negative Bedside Urine Leukocytes - Negative Esterase Imaging Data XR-Hip LT: Radiologist's Impression: Kellie Weber 74 F [address] [address] XRay Report Signed Patient: Kellie Weber AMR#: [id number] : 5Acct:[id number] Age/Sex: 74 / FDate of Service: 05/27/20 Loc: ED Accession Number: [id number] Procedure: XR hip w pel if done LT 2V Ordering Provider: Baron Yost MD PROCEDURE: XR HIP W PEL IF DONE LT 2V INDICATIONS: pain left hip. may go from ED WR. TECHNIQUE: AP pelvis with lateral view(s) of the left hip(s). COMPARISON: [facility], HIP 2V RIGHT, 10/01/2012, 16:43. [facility], HIP 2V LEFT, 10/01/2012, 16:43. [facility], [id number] W PEL IF PERFORMED, 07/27/2017, 10:59. FINDINGS: Bones: No fractures or dislocations. Pelvic ring appears intact. No suspicious bony lesions. Lumbosacral fixation hardware can be seen. There is at least moderate superior joint space narrowing seen of both hips, with associated remodeling changes with subchondral sclerosis and osteophyte formation. Soft tissues: The visualized bowel gas pattern is normal. No suspicious soft tissue calcifications. IMPRESSION: At least moderate degenerative changes seen in both hips, without an acute abnormality identified. If it would be helpful for clinical management decision making, please consider a dedicated hip MRI for further evaluation (assuming that there is no contraindication). If there is strong clinical concern for a labral abnormality, this should be performed according to the arthrogram protocol. Dictated by: Brian Holden M.D. on 05/27/2020 at 9:50 Approved by: Brian Holden M.D. on 05/27/2020 at 9:52 [facility] Narrative Medical decision making narrative: This is a 74 year female who presents to ED with nontraumatic left lateral hip pain. Patient has intact sensation and strength bilaterally. Pain increases with external rotation of left leg and full weight-bearing but is able to ambulate without difficulty. Physical exam is not consistent with cellulitis on left hip. X-ray test does not show acute findings such as fractures or dislocation but moderate degenerate changes in bilateral hip. Patient advised to use Tylenol and Voltaren gel topically since has difficult time tolerating NSAIDS with GI irritation. Return precautions were discussed with the patient and advised to follow up with primary care physician for we check. Further imaging test if pain is not improving in 2 week and consider physical therapy/a referral to orthopedist for an evaluation. Patient verbalized understanding and agreement with the treatment plan. <Baron Yost MD - Last Filed: 06/11/20 09:04> Lab Data Labs: Urine Dip Bedside Urine Glucose Negative Bedside Urine Bilirubin - Negative Bedside Urine Ketone - Negative Urine Specific [place] 1.010 Bedside Urine Occult Blood - Negative Bedside Urine pH 6.0 Bedside Urine Protein - Negative Bedside Urine Urobilinogen - Negative Bedside Urine Nitrite - Negative Bedside Urine Leukocytes - Negative Esterase Discharge Plan Departure Patient Disposition: Home Clinical Impression: Hip pain Discharge Date/Time: 05/27/20 12:26 Instructions: DI for Hip Pain Activity Restrictions/Additional Instructions: You have been diagnosed with [left lateral hip. Xray test today does not show acute findings such as fractures or dislocation but moderate degenerate changes in both hips.]. What to do: *Take your medications as directed. Please take [id number] Tylenol as needed for discomfort. Voltaren gel has been transmitted to [facility] in [place] [facility]. You can use this topical E 3 to 4 times a day as needed for pain. *Follow up with your primary care provider in 2-3 days, call for an appointment. Let them know you were seen in the ED and that we asked you to be seen in follow up. *Return to ED if you have any new, worsening, or concerning symptoms, such as [worsening pain, fever, chills, unable to tolerate fluids, chest pain, breathing difficulty, fever, rash on affected side or any acute concerns]. Prescriptions: New diclofenac sodium [Voltaren] 1 % gel 2 gram TOP QID PRN (Reason: hip pain) Qty: 100 RF: 0 No Action calcium carbonate [Calcium 600] 600 mg calcium (1,500 mg) tablet 600 mg PO DAILY RF: 0 ipratropium bromide 0.03 % spray,non-aerosol 2 spray NASAL BID PRN (Reason: allergy symptoms) Qty: 30 RF: 0 olopatadine [Patanol] 0.1 % drops 0.1 % EYE-BOTH BID PRN (Reason: allergies) Qty: 5 RF: 3 famotidine 20 mg tablet 20 mg PO DAILY Qty: 90 RF: 1 levothyroxine 88 mcg tablet 88 mcg PO DAILY Qty: 90 RF: 0 pyridostigmine bromide 60 mg tablet 60 mg PO QID RF: 0 mycophenolate mofetil 250 mg capsule 750 mg PO BID RF: 0 estradiol 0.01 % (0.1 mg/gram) cream 1 gram VAG 3XW Qty: 42.5 RF: 0 multivitamin tablet 1 tab PO DAILY RF: 0 prednisone 10 mg tablet 20 mg PO DAILY RF: 0 cholecalciferol (vitamin D3) 25 mcg (1,000 unit) capsule 1,000 unit PO DAILY RF: 0 acetaminophen [Tylenol Arthritis Pain] 650 mg tablet extended release 650 mg PO BID PRNRF: 0 Referrals: Michi Alas ARNP [Primary Care Provider] -
[2020-05-27 11:14] VITALS: BP 142/91; PULSE 70; TEMP 36.6; O2SAT 97
--- NOTE | 2020-05-27 11:26 | PC.NURSE ---
pt ambulated to bathroom
[2020-05-27 12:08] VITALS: BP 117/63; PULSE 68; O2SAT 97
== END 2020-05-27 12:26 | disposition home or self-care (01) ==
PROVIDERS: Emergency Provider Nurse Practitioner Family; PCP Nurse Practitioner Family
DX: M25.552 Pain in left hip (principal)
CPT/HCPCS: 73502; 81003; 99283

== ENCOUNTER → 2020-05-31 07:10 | Outpatient (CLI) | payer MEDICARE, OTHER, SELFPAY ==
[2020-05-31 08:06] LABS: Hematocrit 41.1 % (36-46); Hemoglobin 13.5 g/dL (12.0-16.0); Mean Corpuscular HGB Conc 32.9 % (30-36); Mean Corpuscular Hemoglobin 30.6 PG (26-34); Mean Corpuscular Volume 92.9 fL (80-100); Platelet Count 290 X10^3/uL (150-400); Red Blood Cell Count 4.42 X10^6/uL (4.0-5.2); Red Cell Distribution Width 13.5 % (11.6-14.8); White Blood Cell Count 6.8 X10^3/uL (4.5-11.0)
[2020-05-31 08:24] LABS: Alanine Aminotransferase 17 IU/L (<35); Albumin 3.9 g/dL (3.5-5.0); Albumin Globulin Ratio 1.6 (1.0-2.8); Alkaline Phosphatase 51 U/L (38-126); Aspartate Aminotransferase 23 IU/L (14-36); BUN Creatinine Ratio 20.8 (6-22); Bilirubin Total 0.5 mg/dL (0.2-1.3); Blood Urea Nitrogen 16 mg/dL (7-17); Calcium 9.3 mg/dL (8.4-10.2); Carbon Dioxide 32 mmol/L (22-32); Chloride 107 mmol/L (98-107); Cholesterol 223 mg/dL (140-199); Estimated Glomerular Filt Rate > 60.0 mL/min (>60); Globulin 2.4 g/dL (1.7-4.1); Glucose 83 mg/dL (80-110); HDL Cholesterol 103 mg/dL (40-60); HEMOLYSIS < 15 (0-50); LDL Cholesterol Calculated 90 mg/dL (<100); Potassium 4.3 mmol/L (3.4-5.1); Sodium 141 mmol/L (137-145); Total Protein 6.3 g/dL (6.3-8.2); Triglycerides 148 mg/dL (35-150)
[2020-05-31 08:51] LABS: Thyroid Stimulating Hormone 4.95 uIU/mL (0.47-4.68)
== END ==
PROVIDERS: PCP Nurse Practitioner Family; Referring Provider Nurse Practitioner Family; Visit Provider Nurse Practitioner Family
DX: E03.9 Hypothyroidism, unspecified (principal); E78.5 Hyperlipidemia, unspecified; Z86.2 Personal history of diseases of the blood and blood-forming organs and certain disorders involving the immune mechanism
CPT/HCPCS: 36415; 80053; 80061; 84443; 85027

== ENCOUNTER → 2020-06-05 13:36 | Outpatient (CLI) | payer MEDICARE, OTHER, SELFPAY | PROVIDERS: PCP Nurse Practitioner Family; Referring Provider Nurse Practitioner Family; Visit Provider Nurse Practitioner Family | DX: M85.852 Other specified disorders of bone density and structure, left thigh (principal); Z78.0 Asymptomatic menopausal state; E07.9 Disorder of thyroid, unspecified; Z82.62 Family history of osteoporosis | CPT/HCPCS: 77080 ==

== ENCOUNTER 2020-06-21 20:36 | Emergency (ER) | payer MEDICARE, OTHER, SELFPAY ==
[2020-06-21 20:46] VITALS: BP 131/78; PULSE 78; RESP 18; TEMP 36.6; O2SAT 97
[2020-06-21 20:57] LABS: Appearance Urine UA CLOUDY; Bilirubin Urine UA NEGATIVE (NEGATIVE); Color Urine UA YELLOW; Glucose Urine UA NEGATIVE (Negative); Ketones Urine UA NEGATIVE (NEGATIVE); Leukocyte Esterase Urine UA 3+ (NEGATIVE); Nitrite Urine UA POSITIVE (Negative); Occult Blood Urine UA 3+ (Negative); Protein Urine UA TRACE (Negative); Urobilinogen Urine UA 0.2 E.U./dL (0.2)
[2020-06-21 21:26] LABS: Bacteria Urine Moderate (10-30); Culture Indicated Urine Specimen Cultured; RBC Urine 10-30/HPF (0-5/HPF); WBC Urine 10-30/HPF (0-5/HPF)
[2020-06-21 22:25] VITALS: BP 129/74; PULSE 72; O2SAT 99
--- NOTE | 2020-06-21 22:51 | ED_ITS ---
HPI - Female Genitourinary General Chief complaint: Urogenital-Female Stated complaint: UTI Time Seen by Provider: 06/21/20 22:11 Source: patient Mode of arrival: Ambulatory Limitations: no limitations History of Present Illness HPI Narrative: 74-year-old woman with a recent history of myasthenia gravis, presents with 3 hours of increasing dysuria and urinary frequency. She stated when she got to the emergency room she was starting to feel a bit achy all over. No obvious fevers, cough, chills, vomiting, diarrhea. She notes that this will be her 4th or 5th UTI after starting medications to treat the myasthenia gravis. Related Data Home Medications Medication Instructions Recorded Confirmed calcium carbonate 600 mg calcium 600 mg PO DAILY tab 11/17/18 05/29/20 (1,500 mg) tablet multivitamin 1 tab PO DAILY 04/06/19 05/29/20 cholecalciferol (vitamin D3) 25 1,000 unit PO DAILY 11/29/19 05/29/20 mcg (1,000 unit) capsule mycophenolate mofetil 250 mg 750 mg PO BID 03/28/20 05/29/20 capsule prednisone 10 mg tablet 20 mg PO DAILY tab 03/28/20 05/29/20 pyridostigmine bromide 60 mg tablet 60 mg PO QID tab 03/28/20 05/29/20 acetaminophen 650 mg 650 mg PO BID PRN tab 05/29/20 05/29/20 tablet,extended release Previous Rx's Medication Instructions Recorded ipratropium bromide 0.03 % nasal 2 spray NASAL BID PRN #30 ml 11/18/18 spray olopatadine 0.1 % eye drops 0.1 % EYE-BOTH BID PRN #5 ml 11/21/18 famotidine 20 mg tablet 20 mg PO DAILY #90 tab 12/27/19 estradiol 1 gram VAG 3XW #42.5 gram 03/28/20 diclofenac sodium [Voltaren] 2 gram TOP QID PRN #100 gram 05/27/20 levothyroxine 88 mcg tablet 88 mcg PO DAILY #90 tab 05/31/20 nitrofurantoin monohyd/m-cryst 100 mg PO BID #14 cap 06/21/20 [Macrobid] Allergies Allergy/AdvReac Type Severity Reaction Status Date / Time latex [LATEX] Allergy Intermediate NASTY RASH Verified 05/29/20 10:02 meperidine [MEPERIDINE] Allergy Mild (DEMEROL) Verified 05/29/20 10:02 N/V NSAIDS (Non-Steroidal AdvReac Severe UPSET Verified 05/29/20 10:02 Anti-Inflamma STOMACH [NSAIDS (NON-STEROIDAL ANTI-INFLAMMA] tramadol [TRAMADOL] AdvReac Severe VIOLENTLY Verified 05/29/20 10:02 ILL, BLOATING, DIZZY adhesive [ADHESIVE] AdvReac Intermediate RASH IF Verified 05/29/20 10:02 >12 HOURS, TOLERATES BANDAIDS oxycodone AdvReac Intermediate Nausea and Verified 05/29/20 10:02 vomiting (dry heaves) Rvqeygi-Pyd-Xda Reductase AdvReac Intermediate DEPRESSION Verified 05/29/20 10:02 Inhibitor [[id number] REDUCTASE INHIBITOR] Review of Systems Review of Systems Narrative: Remainder of review of systems including constitutional, ENT, cardiovascular, respiratory, GI, , musculoskeletal, skin, neurologic and psychiatric systems reviewed and are unremarkable except as noted in HPI. Patient History Medical History Asthma (Chronic) Bunion of great toe of right foot (Acute 2016) FH: cholecystectomy (Acute) Gastroesophageal reflux disease (Chronic 12/14/11) Hyperlipidemia (Resolved) Hypothyroidism (Chronic) Inflamed skin tag (Acute) Menopause (Acute) Migraine without status migrainosus, not intractable (Chronic 04/01/11) Muscle tenderness (Acute) Myasthenia gravis (Chronic) Osteopenia of multiple sites (Chronic) Osteoporosis (Chronic) Screening for malignant neoplasm of colon (Acute) Sleep apnea (Resolved) Surgical History History of lumbar fusion (Inactive 12/2017) Hx of cataract surgery (Acute) Hx of cholecystectomy (Acute) S/P partial hysterectomy (Acute) Status post breast biopsy Status post hysterectomy Family History Mother RA (rheumatoid arthritis) Lupus Sister Breast cancer Father Cancer alcohol intake frequency: 0-2 drinks per day Substance Use Type: does not use Exam Narrative Exam Narrative: General: Alert appropriate in no acute distress Respiratory: Able to speak in full sentences, no obvious respiratory distress Abdomen: No abdominal pain, no rebound no guarding. No flank pain Skin: No obvious rashes, warm and dry Neurologic: Grossly intact no obvious asymmetries or abnormalities Psych, appropriate insight and affect, cooperative Initial Vital Signs Initial Vital Signs: Vital Signs Temperature 97.8 F 06/21/20 20:46 Pulse Rate 78 06/21/20 20:46 Respiratory Rate 18 06/21/20 20:46 Blood Pressure 131/78 06/21/20 20:46 Pulse Oximetry 97 06/21/20 20:46 Course Orders Ordered: ED Orders 06/21/20 20:45 Urinalysis and Microscopic Stat Urine Culture Stat Discontinued Medications Nitrofurantoin Macrocrystals (Macrobid 100mg Prepack) 1 bottle MISC SEEINSTR ONE Stop: 06/21/20 22:54 Last Admin: 06/21/20 23:00 Dose: 1 bottle Documented by: MADI Phenazopyridine HCl (Pyridium 100mg Prepack) 1 bottle MISC SEEINSTR ONE Stop: 06/21/20 22:54 Last Admin: 06/21/20 23:00 Dose: 1 bottle Documented by: MADI Vital Signs Vital signs: Vital Signs - 8 hr 06/21/20 20:46 06/21/20 22:25 Temperature 97.8 F Pulse Rate 78 72 Respiratory Rate 18 Blood Pressure 131/78 129/74 Pulse Oximetry 97 99 MDM - Female Genitourinary Medical Records Attestation: I reviewed the patient's medical records. Medical records narrative: Last bladder infection was E coli Organism 1 Escherichia coli [place] Count 50,000 - 60,000 CFU/ml Action to follow Identification and Sensitivity to Follow 1. Escherichia coli M.I.C. RX --------- --- * Amoxicillin/Clavulanate S * Ampicillin R * Ampicillin/Sulbactam R * Cefazolin S * Cefepime S * Ceftriaxone S * Ciprofloxacin S * Ertapenem S * Gentamicin S * Imipenem S * Levofloxacin S * Nitrofurantoin S * Tobramycin S * Trimethoprim/Sulfamethoxazole S * Piperacillin/Tazobactam S Lab Data Labs: Lab Results 06/21/20 Range/Units 20:45 Urine Color Yellow Urine Appearance Cloudy Urine pH 7.0 (4.5-8.0) Ur Specific [place] 1.020 (1.000-1.035) Urine Protein Trace H (Negative) Urine Glucose (UA) Negative (Negative) g/dL Urine Ketones Negative (NEGATIVE) Urine Occult Blood 3+ H (Negative) Urine Nitrate Positive H (Negative) Urine Bilirubin Negative (NEGATIVE) Urine Urobilinogen 0.2 (0.2) E.U./dL Ur Leukocyte Esterase 3+ H (NEGATIVE) Urine RBC 10-30/hpf H (0-5/HPF) Urine WBC 10-30/hpf H (0-5/HPF) Urine Bacteria Moderate (10-30) H (None) Ur Culture Indicated? Specimen cultured MDM Narrative Medical decision making narrative: 74-year-old woman with a history of myasthenia gravis presents with 3-4 hours of increasing dysuria and discomfort. Similar symptoms were noted with prior bladder infections. She has had 3-4 bladder infections since beginning all of the treatments for her myasthenia gravis about a year ago and prior to that she was in her 20s. Most recent culture showed E coli that was sensitive to nitrofurantoin. She does have topical estrogen to use to try and prevent infections but does not use it c onsistently. Encouraged her to do so. Given the frequency that these are returning I have also suggested that she talk with her primary care physician about prophylactic treatment. 50 mg of Macrodantin may be helpful in prevent in future UTIs. At this point there is no evidence of sepsis or pyelonephritis. She is safe for home discharge Discharge Plan Departure Patient Disposition: Home Clinical Impression: Acute UTI Discharge Date/Time: 06/21/20 22:55 Instructions: DI for Urinary Tract Infection (UTI) Activity Restrictions/Additional Instructions: Thank you for coming in today Your urine definitely looks like a bladder infection and based on our discussion, my exam and your vital signs it does not appear to be in infection that has spread to your entire body (sepsis) nor yet a pyelonephritis (kidney infection). I have given you Macrobid and do want you to complete a full 7 day course. I have also given you for radiate to help with bladder spasm. If you are developing worsening fevers, chills, abdominal pain, kidney pain or vomiting diarrhea or other symptoms it would be very appropriate to return to the emergency department Please talk to your primary care doctor about the possibility of low-dose antibiotics to prevent bladder infections while you continue on your myastenia medications Prescriptions: New nitrofurantoin monohyd/m-cryst [Macrobid] 100 mg capsule 100 mg PO BID Qty: 14 RF: 0 No Action calcium carbonate [Calcium 600] 600 mg calcium (1,500 mg) tablet 600 mg PO DAILY RF: 0 ipratropium bromide 0.03 % spray,non-aerosol 2 spray NASAL BID PRN (Reason: allergy symptoms) Qty: 30 RF: 0 olopatadine [Patanol] 0.1 % drops 0.1 % EYE-BOTH BID PRN (Reason: allergies) Qty: 5 RF: 3 famotidine 20 mg tablet 20 mg PO DAILY Qty: 90 RF: 1 levothyroxine 88 mcg tablet 88 mcg PO DAILY Qty: 90 RF: 0 pyridostigmine bromide 60 mg tablet 60 mg PO QID RF: 0 mycophenolate mofetil 250 mg capsule 750 mg PO BID RF: 0 estradiol 0.01 % (0.1 mg/gram) cream 1 gram VAG 3XW Qty: 42.5 RF: 0 multivitamin tablet 1 tab PO DAILY RF: 0 prednisone 10 mg tablet 20 mg PO DAILY RF: 0 cholecalciferol (vitamin D3) 25 mcg (1,000 unit) capsule 1,000 unit PO DAILY RF: 0 acetaminophen [Tylenol Arthritis Pain] 650 mg tablet extended release 650 mg PO BID PRNRF: 0 diclofenac sodium [Voltaren] 1 % gel 2 gram TOP QID PRN (Reason: hip pain) Qty: 100 RF: 0 Referrals: Michi Alas ARNP [Primary Care Provider] -
[2020-06-21] MEDS: PHENAZOPYRIDINE 100 MG PREPACK 1 BOTTLE MISC (23:00)
[2020-06-21] MEDS: NITROFURANTOIN 100MG PREPACK 1 BOTTLE MISC (23:00)
== END 2020-06-21 22:55 | disposition home or self-care (01) ==
PROVIDERS: Emergency Provider Emergency Medicine; PCP Nurse Practitioner Family
DX: N39.0 Urinary tract infection, site not specified (principal)
CPT/HCPCS: 81001; 87077; 87086; 87186; 99281; 99283

== ENCOUNTER → 2020-07-01 08:25 | Outpatient (CLI) | payer MEDICARE, OTHER, SELFPAY ==
[2020-07-01 08:33] LABS: RBC Urine None Seen (0-5/HPF)
[2020-07-01 09:53] LABS: Thyroid Stimulating Hormone 1.39 uIU/mL (0.47-4.68)
[2020-07-01 10:43] LABS: Appearance Urine UA CLEAR; Bilirubin Urine UA NEGATIVE (NEGATIVE); Color Urine UA YELLOW; Glucose Urine UA NEGATIVE (Negative); Ketones Urine UA NEGATIVE (NEGATIVE); Leukocyte Esterase Urine UA NEGATIVE (NEGATIVE); Nitrite Urine UA NEGATIVE (Negative); Occult Blood Urine UA NEGATIVE (Negative); Protein Urine UA NEGATIVE (Negative); Urobilinogen Urine UA 0.2 E.U./dL (0.2)
[2020-07-01 10:54] LABS: Bacteria Urine Occasional (0-1); Culture Indicated Urine Cult Not Indicated; Squamous Epithelial Cell Urine 0-1 /HPF (0-5/HPF); WBC Urine 0-1/HPF (0-5/HPF)
== END ==
PROVIDERS: PCP Nurse Practitioner Family; Referring Provider Nurse Practitioner Family; Visit Provider Nurse Practitioner Family
DX: N39.0 Urinary tract infection, site not specified (principal); E03.9 Hypothyroidism, unspecified
CPT/HCPCS: 36415; 81001; 84443

== ENCOUNTER → 2020-07-12 09:14 | Outpatient (CLI) | payer MEDICARE, OTHER, SELFPAY ==
[2020-07-12 12:53] LABS: Bacteria Urine None Seen
[2020-07-12 13:07] LABS: Appearance Urine UA SL CLOUDY; Bilirubin Urine UA NEGATIVE (NEGATIVE); Color Urine UA YELLOW; Glucose Urine UA NEGATIVE (Negative); Ketones Urine UA NEGATIVE (NEGATIVE); Leukocyte Esterase Urine UA 2+ (NEGATIVE); Nitrite Urine UA NEGATIVE (Negative); Occult Blood Urine UA 3+ (Negative); Protein Urine UA NEGATIVE (Negative); Specific Gravity Urine UA <=1.005 (1.000-1.035); Urobilinogen Urine UA 0.2 E.U./dL (0.2)
[2020-07-12 13:12] LABS: pH Urine UA 5.5 (4.5-8.0)
[2020-07-12 13:14] LABS: Culture Indicated Urine Specimen Cultured; RBC Urine 5-10/HPF (0-5/HPF); WBC Urine 10-30/HPF (0-5/HPF)
== END ==
PROVIDERS: PCP Nurse Practitioner Family; Visit Provider Nurse Practitioner Family
DX: R31.9 Hematuria, unspecified (principal)
CPT/HCPCS: 81001; 87086

== ENCOUNTER → 2020-07-22 10:59 | Outpatient (CLI) | payer MEDICARE, OTHER, SELFPAY ==
--- NOTE | 2020-07-22 11:01 | DI.MG.S_ITS ---
BILATERAL DIGITAL SCREENING MAMMOGRAM 3D/2D WITH CAD: 07/22/2020 CLINICAL: Routine screening. Family history of breast cancer. Comparison is made to exams dated: 07/21/2019 mammogram, 07/04/2019 mammogram, and 06/22/2018 mammogram - [facility]. The tissue of both breasts is heterogeneously dense. This may lower the sensitivity of mammography. Current study was also evaluated with a Computer Aided Detection (CAD) system. There is a stable benign focal asymmetry in the left breast. There also are benign post operative findings in the left breast. No significant masses, calcifications, or other findings are seen in either breast. There has been no significant interval change. IMPRESSION: BENIGN There is no mammographic evidence of malignancy. A 1 year screening mammogram is recommended. This exam was interpreted at Station ID: [id number]. NOTE: For mammograms, a report in lay terms will be sent to the patient. Approximately 15% of breast malignancies will not be visualized mammographically. In the management of a palpable breast mass, a negative mammogram must not discourage biopsy of a clinically suspicious lesion. Electronically Signed By: Gui Meza acr/penrad:07/22/2020 11:39:53 letter sent: Normal Exam ACR BI-RADS Category 2: Benign Finding(s) [id number]
== END ==
PROVIDERS: PCP Nurse Practitioner Family; Referring Provider Nurse Practitioner Family; Visit Provider Nurse Practitioner Family
DX: Z12.31 Encounter for screening mammogram for malignant neoplasm of breast (principal); Z80.3 Family history of malignant neoplasm of breast
CPT/HCPCS: 77063; 77067

== ENCOUNTER → 2020-08-27 09:09 | Outpatient (CLI) | payer MEDICARE, OTHER, SELFPAY ==
--- NOTE | 2020-08-27 09:11 | DI.MRI.S_ITS ---
PROCEDURE: MR LUMBAR SPINE WO/W CON INDICATIONS: LOW BACK PAIN TECHNIQUE: Noncontrast sagittal T1 spin echo and T2 fast spin echo, sagittal STIR, axial T1 and T2 fast spin echo through the lumbar spine. In cases with scoliosis, additional coronal T2 fast spin echo may be performed. After the administration of contrast, sagittal and axial T1 spin echo with fat saturation through the lumbar spine. COMPARISON: [facility], , L-SPINE WITHOUT CONTRAST, 10/14/2017, 12:51. FINDINGS: Image quality: Portions of the spine are suboptimally evaluated secondary to metallic susceptibility artifact from lumbar fixation. Alignment and curvature: There is normal bony alignment. Posterior fusion is present from L4 through S1. Marrow: Marrow is of normal overall signal. No acute vertebral body compression fractures. No suspicious marrow enhancement. Schmorl's node is noted along the superior endplate of L1, L3, S1 with suspected small nodes along the inferior endplates of L3 and L5, partially obscured by artifact. Spinal cord: Conus medullaris terminates at the L1 level. Visualized spinal cord demonstrates normal signal, without suspicious enhancement. 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 Paraspinous soft tissues: No paravertebral masses or abnormal enhancement. Discs: Moderate to severe disc desiccation throughout the lumbar spine. L1-L2: Mild disc bulge without spinal stenosis. Mild bilateral foraminal narrowing with facet and ligamentum flavum hypertrophy. Minimal foraminal narrowing progression. L2-L3: Mild disc bulge with xqlq-mg-eugiaist spinal stenosis. Vcjj-fk-tqifwqsg left and mild right foraminal narrowing, minimally progressive on the left with facet and ligamentum flavum hypertrophy. L3-L4: Mild disc bulge with mild spinal stenosis, minimally progressive. Falf-de-whyeobrl left and mild right foraminal narrowing, unchanged. Facet and ligamentum flavum hypertrophy are present. L4-L5: Postsurgical changes are present at this level. No spinal stenosis. Moderate left foraminal narrowing with facet and ligamentum flavum hypertrophy. Previous spinal stenosis has improved and foraminal narrowing is unchanged. L5-S1: Postsurgical changes are present. No spinal stenosis, improved. Fqft-aj-baulifra bilateral foraminal narrowing, questionably minimally progressive with facet hypertrophy. IMPRESSION: 1. Interval posterior fusion. 2. Interval proven a previous areas of spinal stenosis as noted above. 3. Multilevel foraminal narrowing, relatively stable as noted. Foraminal narrowing remains most prominent at L4-5 secondary to facet arthropathy. Dictated by: Shyla Akhtar M.D. on 08/27/2020 at 10:59 Approved by: Shyla Akhtar M.D. on 08/27/2020 at 11:10
== END ==
PROVIDERS: PCP Nurse Practitioner Family; Referring Provider Nurse Practitioner Family; Visit Provider Nurse Practitioner Family
DX: M54.5 Low back pain (principal); M48.061 Spinal stenosis, lumbar region without neurogenic claudication; M47.816 Spondylosis without myelopathy or radiculopathy, lumbar region; Z98.1 Arthrodesis status
CPT/HCPCS: 72158

== ENCOUNTER 2020-09-13 06:18 | Emergency (ER) | payer MEDICARE, OTHER, SELFPAY ==
[2020-09-13 06:31] VITALS: BP 137/82; PULSE 84; RESP 17; TEMP 37; O2SAT 96; BMI 25.7
--- NOTE | 2020-09-13 07:17 | ED.FEMALEGU ---
HPI - Female Genitourinary General Chief complaint: Urogenital-Female Stated complaint: UTI Time Seen by Provider: 09/13/20 07:00 Source: patient Mode of arrival: Ambulatory Limitations: no limitations History of Present Illness HPI Narrative: 75-year-old female nonsmoker with history of myasthenia gravis presents with a chief complaint of burning, frequency and urgency with blood tinged urine for the past day or so. She denies systemic symptoms such as nausea, vomiting, fever or chills. She has had a twinge of pain in her back but states that it is musculoskeletal and has been there for quite some time. This pain worsens with motion and improves with rest. MD Complaint: dysuria and UTI Onset (ago): day(s) Location: suprapubic Severity: mild Quality: Burning Duration: constant Relieving factors: none Exacerbating factors: urination Urinary symptoms: Dysuria, Frequency, Hematuria and Urgency Related Data Home Medications Medication Instructions Recorded Confirmed calcium carbonate 600 mg calcium 600 mg PO DAILY tab 11/17/18 08/20/20 (1,500 mg) tablet multivitamin 1 tab PO DAILY 04/06/19 08/20/20 cholecalciferol (vitamin D3) 25 1,000 unit PO DAILY 11/29/19 08/20/20 mcg (1,000 unit) capsule mycophenolate mofetil 250 mg 750 mg PO BID 03/28/20 08/20/20 capsule acetaminophen 650 mg 650 mg PO BID PRN tab 05/29/20 08/20/20 tablet,extended release prednisone 10 mg tablet 10 mg PO DAILY tab 08/20/20 08/20/20 pyridostigmine bromide 60 mg tablet 60 mg PO DAILY tab 08/20/20 08/20/20 Previous Rx's Medication Instructions Recorded ipratropium bromide 0.03 % nasal 2 spray NASAL BID PRN #30 ml 11/18/18 spray olopatadine 0.1 % eye drops 0.1 % EYE-BOTH BID PRN #5 ml 11/21/18 famotidine 20 mg tablet 20 mg PO DAILY #90 tab 07/29/20 estradiol 1 g VAG 3XW #42.5 gram 08/03/20 levothyroxine 88 mcg tablet 88 mcg PO DAILY #90 tab 08/03/20 diclofenac sodium 1 % topical gel 2 g TOP QID PRN #100 gram 08/12/20 escitalopram oxalate 10 mg tablet 10 mg PO DAILY #60 tab 08/20/20 amoxicillin-pot clavulanate 1 tab PO BID #14 tab 09/13/20 [Augmentin] phenazopyridine [Pyridium] 100 mg PO TID PRN #6 tab 09/13/20 Allergies Allergy/AdvReac Type Severity Reaction Status Date / Time latex [LATEX] Allergy Intermediate NASTY RASH Verified 08/20/20 09:34 meperidine [MEPERIDINE] Allergy Mild (DEMEROL) Verified 08/20/20 09:34 N/V NSAIDS (Non-Steroidal AdvReac Severe UPSET Verified 08/20/20 09:34 Anti-Inflamma STOMACH [NSAIDS (NON-STEROIDAL ANTI-INFLAMMA] tramadol [TRAMADOL] AdvReac Severe VIOLENTLY Verified 08/20/20 09:34 ILL, BLOATING, DIZZY adhesive [ADHESIVE] AdvReac Intermediate RASH IF Verified 08/20/20 09:34 >12 HOURS, TOLERATES BANDAIDS oxycodone AdvReac Intermediate Nausea and Verified 08/20/20 09:34 vomiting (dry heaves) Khjheho-Dwd-Lsa Reductase AdvReac Intermediate DEPRESSION Verified 08/20/20 09:34 Inhibitor [[id number]-CBV-SGY REDUCTASE INHIBITOR] Review of Systems Constitutional Constitutional: Denies chills, Denies fatigue, Denies fever(s), Denies frequent falls, Denies lethargy and Denies weakness Eyes Eyes: Denies change in vision, Denies eye discharge, Denies irritation and Denies loss of vision ENT Ears, Nose, Mouth, and Throat: Denies change in voice, Denies dizziness, Denies neck pain, Denies sore throat and Denies throat swelling Cardiovascular Cardiovascular: Denies chest pain, Denies irregular heart rhythm, Denies lightheadedness, Denies palpitations, Denies dyspnea, Denies dyspnea on exertion and Denies orthopnea Respiratory Respiratory: Denies cough, Denies dyspnea, Denies dyspnea on exertion and Denies wheezing Gastrointestinal Gastrointestinal: Denies abdominal pain, Denies change in bowel habits, Denies diarrhea, Denies nausea and Denies vomiting Genitourinary Genitourinary: Reports hematuria, Reports dysuria and Reports dysuria Genitourinary: Reports hematuria, Reports dysuria and Reports dysuria Musculoskeletal Musculoskeletal: Denies neck pain and Denies numbness Integumentary/Breasts Skin/Breast: Denies pruritus, Denies erythema, Denies rash and Denies wounds Neurologic Neurologic: Denies behavioral changes, Denies confusion, Denies dizziness, Denies frequent falls, Denies loss of vision, Denies numbness and Denies weakness Psychiatric Psychiatric: Denies anxiety, Denies behavioral changes, Denies confusion, Denies depression, Denies homicidal ideation and Denies suicidal ideation Endocrine Endocrine: Denies fatigue, Denies flushing and Denies palpitations Hematologic/Lymphatic Hematologic/Lymphatic: Denies easy bruising Allergic/Immunologic Allergic/Immunologic: Denies urticaria, Denies throat swelling and Denies wheezing Patient History Medical History Acute UTI Asthma Bunion of great toe of right foot (2016) Depression with anxiety FH: cholecystectomy Frequent UTI Gastroesophageal reflux disease (12/14/11) Hyperlipidemia Hypothyroidism Inflamed skin tag Lumbar pain Menopause Migraine without status migrainosus, not intractable (04/01/11) Muscle tenderness Myasthenia gravis Osteopenia of multiple sites Osteoporosis Screening for malignant neoplasm of colon Sleep apnea Surgical History History of lumbar fusion (12/2017) History of spinal surgery (2017) Hx of cataract surgery Hx of cholecystectomy S/P partial hysterectomy Status post breast biopsy Status post hysterectomy Family History Mother RA (rheumatoid arthritis) Lupus Sister Breast cancer Father Cancer alcohol intake frequency: 0-2 drinks per day Substance Use Type: does not use Exam Narrative Exam Narrative: GEN: AOx3 and in mild distress EYES: Pupils are equal, round, and reactive to light and accommodation. Extraoccular muscles are intact bilaterally. There is no subconjunctival hemorrhage or exudate. CHEST: Lungs are clear to auscultation bilaterally and free of wheezes, rales, or rhonchi. Heart rate is regular rhythm, there are no murmurs, clicks, rubs, or gallops. There is no chest wall tenderness. ABD: Abdomen is soft and nontender. There is no guarding or rebound. Bowel sounds are normal in all 4 quadrants. There is no mass or organomegaly. EXT: Full painless ROM of all extremities with no loss of sensation or strength. SKIN: Warm, pink, and dry. No erythema or rash Initial Vital Signs Initial Vital Signs: Vital Signs Temperature 98.6 F 09/13/20 06:31 Pulse Rate 84 09/13/20 06:31 Respiratory Rate 17 09/13/20 06:31 Blood Pressure 137/82 09/13/20 06:31 Pulse Oximetry 96 09/13/20 06:31 Course Orders Ordered: ED Orders 09/13/20 06:30 Urinalysis and Microscopic Stat Urine Culture Stat Discontinued Medications Amoxicillin/Clavulanate Potassium (Amoxicillin/Clav 875/125 Mg) 1 tab PO NOW ONE Stop: 09/13/20 07:56 Last Admin: 09/13/20 08:01 Dose: 1 tab Documented by: Phenazopyridine HCl (Phenazopyridine 100 Mg Tablet) 100 mg PO NOW ONE Stop: 09/13/20 07:56 Last Admin: 09/13/20 08:01 Dose: 100 mg Documented by: Vital Signs Vital signs: Vital Signs - 8 hr 09/13/20 06:31 09/13/20 08:08 Temperature 98.6 F Pulse Rate 84 72 Respiratory Rate 17 16 Blood Pressure 137/82 119/60 Pulse Oximetry 96 98 MDM - Female Genitourinary Lab Data Labs: Lab Results 09/13/20 Range/Units 06:30 Urine Color Red Urine Appearance Turbid Urine pH 6.0 (4.5-8.0) Ur Specific [place] 1.020 (1.000-1.035) Urine Protein 3+ H (Negative) Urine Glucose (UA) Negative (Negative) g/dL Urine Ketones Negative (NEGATIVE) Urine Occult Blood 3+ H (Negative) Urine Nitrate Negative (Negative) Urine Bilirubin Negative (NEGATIVE) Urine Urobilinogen 0.2 (0.2) E.U./dL Ur Leukocyte Esterase 2+ H (NEGATIVE) Urine RBC >100/hpf H (0-5/HPF) Urine WBC 30-100/hpf H (0-5/HPF) Ur Squamous Epith Cells 1-5 /hpf (0-5/HPF) Urine Bacteria Few (2-10) H (None) Ur Culture Indicated? Specimen cultured Discharge Plan Departure Patient Disposition: Home Clinical Impression: Acute UTI Instructions: DI for Urinary Tract Infection (UTI) Activity Restrictions/Additional Instructions: *You have been diagnosed with [acute urinary tract infection] *What to do: *Take medications as directed: Prescription went to [facility] *Follow up with your primary care provider in 2-3 days, call for an appointment. Let them know you were seen in the Emergency Department and that we ask that you be seen in follow up *Return to ER if you should have any new, worsening or concerning symptoms, such as [increasing pain, fever greater than 101 F, chills, vomiting or other bothersome symptoms] Prescriptions: New amoxicillin-pot clavulanate [Augmentin] 875-125 mg tablet 1 tab PO BID Qty: 14 RF: 0 phenazopyridine [Pyridium] 100 mg tablet 100 mg PO TID PRN (Reason: pain) Qty: 6 RF: 0 No Action calcium carbonate [Calcium 600] 600 mg calcium (1,500 mg) tablet 600 mg PO DAILY RF: 0 ipratropium bromide 0.03 % spray,non-aerosol 2 spray NASAL BID PRN (Reason: allergy symptoms) Qty: 30 RF: 0 olopatadine [Patanol] 0.1 % drops 0.1 % EYE-BOTH BID PRN (Reason: allergies) Qty: 5 RF: 3 famotidine 20 mg tablet 20 mg PO DAILY Qty: 90 RF: 1 estradiol 0.01 % (0.1 mg/gram) cream 1 g VAG 3XW Qty: 42.5 RF: 0 levothyroxine 88 mcg tablet 88 mcg PO DAILY Qty: 90 RF: 0 diclofenac sodium [Voltaren] 1 % gel 2 g TOP QID PRN (Reason: hip pain) Qty: 100 RF: 2 pyridostigmine bromide 60 mg tablet 60 mg PO DAILY RF: 0 mycophenolate mofetil 250 mg capsule 750 mg PO BID RF: 0 multivitamin tablet 1 tab PO DAILY RF: 0 prednisone 10 mg tablet 10 mg PO DAILY RF: 0 cholecalciferol (vitamin D3) 25 mcg (1,000 unit) capsule 1,000 unit PO DAILY RF: 0 acetaminophen [Tylenol Arthritis Pain] 650 mg tablet extended release 650 mg PO BID PRNRF: 0 escitalopram oxalate [Lexapro] 10 mg tablet 10 mg PO DAILY Qty: 60 RF: 0 Referrals: Michi Alas ARNP [Primary Care Provider] -
[2020-09-13 07:48] LABS: Appearance Urine UA TURBID; Bilirubin Urine UA NEGATIVE (NEGATIVE); Color Urine UA RED; Glucose Urine UA NEGATIVE (Negative); Ketones Urine UA NEGATIVE (NEGATIVE); Leukocyte Esterase Urine UA 2+ (NEGATIVE); Nitrite Urine UA NEGATIVE (Negative); Occult Blood Urine UA 3+ (Negative); Protein Urine UA 3+ (Negative); Urobilinogen Urine UA 0.2 E.U./dL (0.2)
[2020-09-13 07:58] LABS: Bacteria Urine Few (2-10); Culture Indicated Urine Specimen Cultured; RBC Urine >100/HPF (0-5/HPF); Squamous Epithelial Cell Urine 1-5 /HPF (0-5/HPF); WBC Urine 30-100/HPF (0-5/HPF)
[2020-09-13] MEDS: AMOXICILLIN/CLAV 875/125 MG 1 TAB PO (08:01)
[2020-09-13] MEDS: PHENAZOPYRIDINE 100 MG TABLET PO (08:01)
[2020-09-13 08:08] VITALS: BP 119/60; PULSE 72; RESP 16; O2SAT 98
== END 2020-09-13 08:09 | disposition home or self-care (01) ==
PROVIDERS: Emergency Medicine; Emergency Provider Emergency Medicine; PCP Nurse Practitioner Family
DX: N39.0 Urinary tract infection, site not specified (principal); R31.9 Hematuria, unspecified; R30.0 Dysuria
CPT/HCPCS: 81001; 87086; 99281; 99283

== ENCOUNTER → 2020-09-17 11:21 | Outpatient (CLI) | payer MEDICARE, OTHER, SELFPAY | PROVIDERS: PCP Nurse Practitioner Family; Referring Provider Nurse Practitioner Family; Visit Provider Nurse Practitioner Family | DX: E03.9 Hypothyroidism, unspecified (principal) | CPT/HCPCS: 36415; 84443 ==

== ENCOUNTER 2020-09-21 16:20 | Emergency (ER) | payer MEDICARE, OTHER, SELFPAY ==
[2020-09-21 16:42] VITALS: BP 128/69; PULSE 86; RESP 14; TEMP 36.8; O2SAT 97; BMI 25.7
--- NOTE | 2020-09-21 16:49 | DI.US.S_ITS ---
PROCEDURE: US PERIPH VENOUS LOW EXTREM RT INDICATIONS: RULE OUT DEEP VEIN THROMBOSIS TECHNIQUE: Real-time imaging, as well as color and pulse Doppler interrogation, were performed of the lower extremity deep veins from the inguinal ligament to the popliteal fossa. COMPARISON: None. FINDINGS: The common femoral, femoral and popliteal veins are normally compressible, and free of intraluminal thrombus. Color and pulse Doppler demonstrate normal phasic intraluminal flow. There is normal augmentation response to distal compression maneuver. IMPRESSION: No evidence of right lower extremity DVT. Dictated by: Hussain Burk M.D. on 09/21/2020 at 18:21 Approved by: Hussain Burk M.D. on 09/21/2020 at 18:22
[2020-09-21 17:44] VITALS: BP 123/70; PULSE 93; O2SAT 97
--- NOTE | 2020-09-21 18:09 | ED.EXTPRO ---
HPI - Extremity Problem General Chief complaint: Extremity Problem,Nontraumatic Stated complaint: blood clot in right Time Seen by Provider: 09/21/20 18:06 Source: patient Mode of arrival: Ambulatory Limitations: no limitations History of Present Illness HPI Narrative: 75 year old Female nonsmoker presents with a chief complaint of some occasional cramping in her right calf over the past day or 2 in the absence of any known injury. She denies any redness, swelling or warmth. She was doing some reading and is afraid that she may have a clot in a deep vein. She denies any chest pain or shortness of breath. She denies any history of clot. She denies any systemic symptoms such as fever, chills nor nausea or vomiting. We did recently see her and treat for a urinary tract infection with Augmentin. She is otherwise well and free of complaint Related Data Home Medications Medication Instructions Recorded Confirmed calcium carbonate 600 mg calcium 600 mg PO DAILY tab 11/17/18 08/20/20 (1,500 mg) tablet multivitamin 1 tab PO DAILY 04/06/19 08/20/20 cholecalciferol (vitamin D3) 25 1,000 unit PO DAILY 11/29/19 08/20/20 mcg (1,000 unit) capsule mycophenolate mofetil 250 mg 750 mg PO BID 03/28/20 08/20/20 capsule acetaminophen 650 mg 650 mg PO BID PRN tab 05/29/20 08/20/20 tablet,extended release prednisone 10 mg tablet 10 mg PO DAILY tab 08/20/20 08/20/20 pyridostigmine bromide 60 mg tablet 60 mg PO DAILY tab 08/20/20 08/20/20 Previous Rx's Medication Instructions Recorded ipratropium bromide 0.03 % nasal 2 spray NASAL BID PRN #30 ml 11/18/18 spray olopatadine 0.1 % eye drops 0.1 % EYE-BOTH BID PRN #5 ml 11/21/18 famotidine 20 mg tablet 20 mg PO DAILY #90 tab 07/29/20 estradiol 1 g VAG 3XW #42.5 gram 08/03/20 diclofenac sodium 1 % topical gel 2 g TOP QID PRN #100 gram 08/12/20 escitalopram oxalate 10 mg tablet 10 mg PO DAILY #60 tab 08/20/20 amoxicillin-pot clavulanate 1 tab PO BID #14 tab 09/13/20 [Augmentin] phenazopyridine [Pyridium] 100 mg PO TID PRN #6 tab 09/13/20 levothyroxine 75 mcg tablet 75 mcg PO DAILY #90 tab 09/17/20 Allergies Allergy/AdvReac Type Severity Reaction Status Date / Time latex [LATEX] Allergy Intermediate NASTY RASH Verified 09/21/20 16:42 meperidine [MEPERIDINE] Allergy Mild (DEMEROL) Verified 09/21/20 16:42 N/V NSAIDS (Non-Steroidal AdvReac Severe UPSET Verified 09/21/20 16:42 Anti-Inflamma STOMACH [NSAIDS (NON-STEROIDAL ANTI-INFLAMMA] tramadol [TRAMADOL] AdvReac Severe VIOLENTLY Verified 09/21/20 16:42 ILL, BLOATING, DIZZY adhesive [ADHESIVE] AdvReac Intermediate RASH IF Verified 09/21/20 16:42 >12 HOURS, TOLERATES BANDAIDS oxycodone AdvReac Intermediate Nausea and Verified 09/21/20 16:42 vomiting (dry heaves) Vsgtivt-Opu-Efq Reductase AdvReac Intermediate DEPRESSION Verified 09/21/20 16:42 Inhibitor [SJGLIIS-DGR-MXE REDUCTASE INHIBITOR] Aminoglycosides AdvReac Verified 09/21/20 16:42 Barbiturates AdvReac Verified 09/21/20 16:42 Benzodiazepines AdvReac Verified 09/21/20 16:42 Beta-Blockers AdvReac Verified 09/21/20 16:42 (Beta-Adrenergic Bloc Botulinum Toxin AdvReac Verified 09/21/20 16:42 deferoxamine [From Desferal] AdvReac Verified 09/21/20 16:42 Macrolide Antibiotics AdvReac Verified 09/21/20 16:42 magnesium AdvReac Verified 09/21/20 16:42 Opioids - Morphine Analogues AdvReac Verified 09/21/20 16:42 penicillamine AdvReac Verified 09/21/20 16:42 procainamide AdvReac Verified 09/21/20 16:42 Quinolones AdvReac Verified 09/21/20 16:42 telithromycin AdvReac Verified 09/21/20 16:42 Review of Systems Constitutional Constitutional: Denies chills, Denies fatigue, Denies fever(s), Denies frequent falls, Denies lethargy and Denies weakness Eyes Eyes: Denies change in vision, Denies eye discharge, Denies irritation and Denies loss of vision ENT Ears, Nose, Mouth, and Throat: Denies change in voice, Denies dizziness, Denies neck pain, Denies sore throat and Denies throat swelling Cardiovascular Cardiovascular: Denies chest pain, Denies irregular heart rhythm, Denies lightheadedness, Denies palpitations, Denies dyspnea, Denies dyspnea on exertion and Denies orthopnea Respiratory Respiratory: Denies cough, Denies dyspnea, Denies dyspnea on exertion and Denies wheezing Gastrointestinal Gastrointestinal: Denies abdominal pain, Denies change in bowel habits, Denies diarrhea, Denies nausea and Denies vomiting Musculoskeletal Musculoskeletal: Denies neck pain and Denies numbness Comments: Right calf pain Integumentary/Breasts Skin/Breast: Denies pruritus, Denies erythema, Denies rash and Denies wounds Neurologic Neurologic: Denies behavioral changes, Denies confusion, Denies dizziness, Denies frequent falls, Denies loss of vision, Denies numbness and Denies weakness Psychiatric Psychiatric: Denies anxiety, Denies behavioral changes, Denies confusion, Denies depression, Denies homicidal ideation and Denies suicidal ideation Endocrine Endocrine: Denies fatigue, Denies flushing and Denies palpitations Hematologic/Lymphatic Hematologic/Lymphatic: Denies easy bruising Allergic/Immunologic Allergic/Immunologic: Denies urticaria, Denies throat swelling and Denies wheezing Patient History Medical History Acute UTI Arthritis Asthma Bunion of great toe of right foot (2016) Depression with anxiety FH: cholecystectomy Frequent UTI Gastroesophageal reflux disease (12/14/11) Hyperlipidemia Hypothyroidism Inflamed skin tag Lumbar pain Menopause Migraine without status migrainosus, not intractable (04/01/11) Muscle tenderness Myasthenia gravis Osteopenia of multiple sites Osteoporosis Screening for malignant neoplasm of colon Sleep apnea Surgical History History of lumbar fusion (12/2017) History of spinal surgery (2016) Hx of cataract surgery Hx of cholecystectomy S/P partial hysterectomy Status post breast biopsy Status post creation of urethral sling by suprapubic approach Status post hysterectomy Family History Mother RA (rheumatoid arthritis) Lupus Sister Breast cancer Lung cancer Hearing impairment Father Cancer Hearing impairment Brother Thyroid disorder Social History marital status: number of children: 2 household members: spouse occupational status: previously employed Smoking Status: Never smoker second hand exposure: Yes (I grew up with parents that smoked and my first smoked.) alcohol intake: former substance use type: does not use caffeine: Yes Smoking Status: Never smoker alcohol intake frequency: holidays/special occasions only Substance Use Type: does not use Exam Narrative Exam Narrative: GEN: AOx3 and in mild distress EYES: Pupils are equal, round, and reactive to light and accommodation. Extraoccular muscles are intact bilaterally. There is no subconjunctival hemorrhage or exudate. CHEST: Lungs are clear to auscultation bilaterally and free of wheezes, rales, or rhonchi. Heart rate is regular rhythm, there are no murmurs, clicks, rubs, or gallops. There is no chest wall tenderness. ABD: Abdomen is soft and nontender. There is no guarding or rebound. Bowel sounds are normal in all 4 quadrants. There is no mass or organomegaly. EXT: Full painless ROM of all extremities with no loss of sensation or strength. No reproducible right calf pain. No noted swelling, erythema or warmth SKIN: Warm, pink, and dry. No erythema or rash Initial Vital Signs Initial Vital Signs: Vital Signs Temperature 98.3 F 09/21/20 16:42 Pulse Rate 86 09/21/20 16:42 Respiratory Rate 14 09/21/20 16:42 Blood Pressure 128/69 09/21/20 16:42 Pulse Oximetry 97 09/21/20 16:42 Course Orders Ordered: ED Orders 09/21/20 16:49 US periph venous low extrem rt Stat Vital Signs Vital signs: Vital Signs - 8 hr 09/21/20 16:42 09/21/20 17:44 Temperature 98.3 F Pulse Rate 86 93 H Respiratory Rate 14 Blood Pressure 128/69 123/70 Pulse Oximetry 97 97 MDM - Extremity (Nontraumatic) Imaging Data US - DVT: Radiologist's Impression: MR#: [id number]: 5Acct:[id number]/Sex: 75 / FDate of Service: 09/21/20Loc: EDAccession Number: [id number] Procedure: US periph venous low extrem rt Ordering Provider: Yanci Garber D.O. PROCEDURE: US PERIPH VENOUS LOW EXTREM RT INDICATIONS: RULE OUT DEEP VEIN THROMBOSIS TECHNIQUE: Real-time imaging, as well as color and pulse Doppler interrogation, were performed of the lower extremity deep veins from the inguinal ligament to the popliteal fossa. COMPARISON: None. FINDINGS: The common femoral, femoral and popliteal veins are normally compressible, and free of intraluminal thrombus. Color and pulse Doppler demonstrate normal phasic intraluminal flow. There is normal augmentation response to distal compression maneuver. IMPRESSION: No evidence of right lower extremity DVT. Dictated by: Hussain Burk M.D. on 09/21/2020 at 18:21 Approved by: Hussain Burk M.D. on 09/21/2020 at 18:22 Discharge Plan Departure Patient Disposition: Home Clinical Impression: Pain of right calf Instructions: DI for Leg Pain Activity Restrictions/Additional Instructions: *You have been diagnosed with [right calf pain. Your physical exam and ultrasound are very reassuring. There is currently no evidence of blood clot or infection] *What to do: * continue to take medications as directed *Follow up with your primary care provider in 2-3 days, call for an appointment. Let them know you were seen in the Emergency Department and that we ask that you be seen in follow up *Return to ER if you should have any new, worsening or concerning symptoms Prescriptions: No Action calcium carbonate [Calcium 600] 600 mg calcium (1,500 mg) tablet 600 mg PO DAILY RF: 0 ipratropium bromide 0.03 % spray,non-aerosol 2 spray NASAL BID PRN (Reason: allergy symptoms) Qty: 30 RF: 0 olopatadine [Patanol] 0.1 % drops 0.1 % EYE-BOTH BID PRN (Reason: allergies) Qty: 5 RF: 3 famotidine 20 mg tablet 20 mg PO DAILY Qty: 90 RF: 1 estradiol 0.01 % (0.1 mg/gram) cream 1 g VAG 3XW Qty: 42.5 RF: 0 diclofenac sodium [Voltaren] 1 % gel 2 g TOP QID PRN (Reason: hip pain) Qty: 100 RF: 2 levothyroxine 75 mcg tablet 75 mcg PO DAILY Qty: 90 RF: 0 pyridostigmine bromide 60 mg tablet 60 mg PO DAILY RF: 0 mycophenolate mofetil 250 mg capsule 750 mg PO BID RF: 0 multivitamin tablet 1 tab PO DAILY RF: 0 prednisone 10 mg tablet 10 mg PO DAILY RF: 0 cholecalciferol (vitamin D3) 25 mcg (1,000 unit) capsule 1,000 unit PO DAILY RF: 0 acetaminophen [Tylenol Arthritis Pain] 650 mg tablet extended release 650 mg PO BID PRNRF: 0 escitalopram oxalate [Lexapro] 10 mg tablet 10 mg PO DAILY Qty: 60 RF: 0 amoxicillin-pot clavulanate [Augmentin] 875-125 mg tablet 1 tab PO BID Qty: 14 RF: 0 phenazopyridine [Pyridium] 100 mg tablet 100 mg PO TID PRN (Reason: pain) Qty: 6 RF: 0 Referrals: Michi Alas ARNP [Primary Care Provider] -
== END 2020-09-21 18:52 | disposition home or self-care (01) ==
PROVIDERS: Emergency Provider Emergency Medicine; PCP Nurse Practitioner Family
DX: M79.661 Pain in right lower leg (principal); E78.5 Hyperlipidemia, unspecified; E03.9 Hypothyroidism, unspecified; J45.909 Unspecified asthma, uncomplicated
CPT/HCPCS: 93971; 99283

== ENCOUNTER → 2020-10-07 07:30 | Outpatient (CLI) | payer MEDICARE, OTHER, SELFPAY ==
[2020-10-07 08:42] LABS: Hematocrit 40.1 % (36-46); Hemoglobin 12.7 g/dL (12.0-16.0); Mean Corpuscular HGB Conc 31.7 % (30-36); Mean Corpuscular Hemoglobin 29.2 PG (26-34); Platelet Count 269 X10^3/uL (150-400); Red Blood Cell Count 4.36 X10^6/uL (4.0-5.2); Red Cell Distribution Width 13.4 % (11.6-14.8); White Blood Cell Count 4.2 X10^3/uL (4.5-11.0)
[2020-10-07 08:58] LABS: Alanine Aminotransferase 15 IU/L (<35); Albumin Globulin Ratio 1.6 (1.0-2.8); Alkaline Phosphatase 54 U/L (38-126); Aspartate Aminotransferase 26 IU/L (14-36); BUN Creatinine Ratio 18.8 (6-22); Bilirubin Total 0.4 mg/dL (0.2-1.3); Blood Urea Nitrogen 13 mg/dL (7-17); Calcium 8.8 mg/dL (8.4-10.2); Carbon Dioxide 33 mmol/L (22-32); Chloride 106 mmol/L (98-107); Cholesterol 217 mg/dL (140-199); Estimated Glomerular Filt Rate > 60.0 mL/min (>60); Globulin 2.5 g/dL (1.7-4.1); Glucose 88 mg/dL (80-110); HDL Cholesterol 81 mg/dL (40-60); HEMOLYSIS < 15 (0-50); LDL Cholesterol Calculated 117 mg/dL (<100); Potassium 4.1 mmol/L (3.4-5.1); Sodium 139 mmol/L (137-145); Total Protein 6.5 g/dL (6.3-8.2); Triglycerides 95 mg/dL (35-150)
[2020-10-07 09:42] LABS: Thyroid Stimulating Hormone 0.311 uIU/mL (0.47-4.68)
== END ==
PROVIDERS: PCP Nurse Practitioner Family; Referring Provider Nurse Practitioner Family; Visit Provider Nurse Practitioner Family
DX: E03.9 Hypothyroidism, unspecified (principal)
CPT/HCPCS: 36415; 80053; 80061; 84443; 85027

== ENCOUNTER → 2020-11-04 07:15 | Outpatient (CLI) | payer MEDICARE, OTHER, SELFPAY ==
[2020-11-04 08:41] LABS: Free T4, Direct Thyroxine 1.22 ng/dL (0.78-2.19)
[2020-11-04 08:54] LABS: Thyroid Stimulating Hormone 0.482 uIU/mL (0.47-4.68)
== END ==
PROVIDERS: PCP Nurse Practitioner Family; Referring Provider Nurse Practitioner Family; Visit Provider Nurse Practitioner Family
DX: E03.9 Hypothyroidism, unspecified (principal)
CPT/HCPCS: 36415; 84439; 84443

== ENCOUNTER → 2020-12-14 08:24 | Outpatient (CLI) | payer MEDICARE, OTHER, SELFPAY ==
[2020-12-14 08:56] LABS: Hematocrit 39.6 % (36-46); Hemoglobin 12.7 g/dL (12.0-16.0); Mean Corpuscular HGB Conc 32.1 % (30-36); Mean Corpuscular Hemoglobin 29.4 PG (26-34); Mean Corpuscular Volume 91.6 fL (80-100); Platelet Count 260 X10^3/uL (150-400); Red Blood Cell Count 4.33 X10^6/uL (4.0-5.2); Red Cell Distribution Width 13.4 % (11.6-14.8); White Blood Cell Count 4.2 X10^3/uL (4.5-11.0)
[2020-12-14 09:17] LABS: Alanine Aminotransferase 14 IU/L (<35); Albumin 3.9 g/dL (3.5-5.0); Albumin Globulin Ratio 1.6 (1.0-2.8); Alkaline Phosphatase 52 U/L (38-126); Aspartate Aminotransferase 26 IU/L (14-36); BUN Creatinine Ratio 18.8 (6-22); Bilirubin Total 0.4 mg/dL (0.2-1.3); Blood Urea Nitrogen 13 mg/dL (7-17); Calcium 8.9 mg/dL (8.4-10.2); Carbon Dioxide 30 mmol/L (22-32); Chloride 106 mmol/L (98-107); Cholesterol 220 mg/dL (140-199); Estimated Glomerular Filt Rate > 60.0 mL/min (>60); Globulin 2.5 g/dL (1.7-4.1); Glucose 91 mg/dL (80-110); HDL Cholesterol 78 mg/dL (40-60); HEMOLYSIS < 15 (0-50); LDL Cholesterol Calculated 122 mg/dL (<100); Potassium 3.8 mmol/L (3.4-5.1); Sodium 139 mmol/L (137-145); Total Protein 6.4 g/dL (6.3-8.2); Triglycerides 102 mg/dL (35-150)
[2020-12-14 09:28] LABS: Vitamin D 25 Hydroxy (D3) 41.7 ng/mL (30.0-100.0)
[2020-12-14 09:42] LABS: Thyroid Stimulating Hormone 0.336 uIU/mL (0.47-4.68)
[2020-12-15 13:39] LABS: Free T4, Direct Thyroxine 1.33 ng/dL (0.78-2.19)
== END ==
PROVIDERS: PCP Nurse Practitioner Family; Referring Provider Nurse Practitioner Family; Visit Provider Nurse Practitioner Family
DX: E03.9 Hypothyroidism, unspecified (principal); Z86.2 Personal history of diseases of the blood and blood-forming organs and certain disorders involving the immune mechanism; M85.89 Other specified disorders of bone density and structure, multiple sites; J45.909 Unspecified asthma, uncomplicated; E78.5 Hyperlipidemia, unspecified; E55.9 Vitamin D deficiency, unspecified
CPT/HCPCS: 36415; 80053; 80061; 82306; 84439; 84443; 85027

== ENCOUNTER → 2021-02-19 09:45 | Outpatient (CLI) | payer MEDICARE, OTHER, SELFPAY ==
[2021-02-19 10:23] LABS: Hematocrit 37.7 % (36-46); Hemoglobin 12.6 g/dL (12.0-16.0); Mean Corpuscular HGB Conc 33.4 % (30-36); Mean Corpuscular Hemoglobin 30.1 PG (26-34); Mean Corpuscular Volume 90.3 fL (80-100); Platelet Count 262 X10^3/uL (150-400); Red Blood Cell Count 4.17 X10^6/uL (4.0-5.2); White Blood Cell Count 5.7 X10^3/uL (4.5-11.0)
[2021-02-19 10:45] LABS: Alanine Aminotransferase 14 IU/L (<35); Albumin 3.9 g/dL (3.5-5.0); Albumin Globulin Ratio 1.6 (1.0-2.8); Alkaline Phosphatase 54 U/L (38-126); Aspartate Aminotransferase 26 IU/L (14-36); BUN Creatinine Ratio 22.4 (6-22); Bilirubin Total 0.4 mg/dL (0.2-1.3); Blood Urea Nitrogen 15 mg/dL (7-17); Calcium 9.1 mg/dL (8.4-10.2); Carbon Dioxide 29 mmol/L (22-32); Chloride 105 mmol/L (98-107); Estimated Glomerular Filt Rate > 60.0 mL/min (>60); Globulin 2.5 g/dL (1.7-4.1); Glucose 78 mg/dL (80-110); HEMOLYSIS < 15 (0-50); Sodium 138 mmol/L (137-145); Total Protein 6.4 g/dL (6.3-8.2)
[2021-02-19 11:06] LABS: Thyroid Stimulating Hormone 2.91 uIU/mL (0.47-4.68)
[2021-02-19 11:50] LABS: Folate > 20.0 ng/mL (2.76-20.0); Vitamin B12 Reflex MMA if <400 862 pg/mL (239-931)
== END ==
PROVIDERS: PCP Nurse Practitioner Family; Referring Provider Nurse Practitioner Family; Visit Provider Nurse Practitioner Family
DX: E03.9 Hypothyroidism, unspecified (principal); R53.83 Other fatigue
CPT/HCPCS: 36415; 80053; 82607; 82746; 84439; 84443; 85027

== ENCOUNTER → 2021-05-16 07:49 | Outpatient (CLI) | payer MEDICARE, OTHER, SELFPAY ==
--- NOTE | 2021-05-16 07:51 | DI.RAD.S_ITS ---
PROCEDURE: XR KNEE LT 3V INDICATIONS: stiffness, pain TECHNIQUE: 3 views of the knee were acquired. COMPARISON: [facility], , KNEE 3V RIGHT, 10/11/2017, 14:48. FINDINGS: Bones: No fractures or dislocations. No suspicious bony lesions. 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 Soft tissues: No joint effusion. No suspicious soft tissue calcifications. 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 No fracture or dislocation. No joint effusion. Dictated by: Hermann Love M.D. on 05/16/2021 at 9:23 Approved by: Hermann Love M.D. on 05/16/2021 at 9:24
--- NOTE | 2021-05-16 07:51 | DI.RAD.S_ITS ---
PROCEDURE: XR HIP W PEL IF DONE LT 2V INDICATIONS: stiffness, pain TECHNIQUE: AP pelvis with lateral view(s) of the left hip(s). COMPARISON: [facility], CR, XR HIP W PEL IF DONE LT 2V, 05/27/2020, 10:16. FINDINGS: Bones: No fractures or dislocations. Fairly symmetric appearing qjqa-cb-dweurmiu bilateral hip joint osteoarthritic changes are seen. No evidence of avascular necrosis of femoral head. Pelvic ring appears intact. No suspicious bony lesions. Posterior fusion hardware in visualized portion of lower lumbar spine is again seen. Soft tissues: The visualized bowel gas pattern is normal. No suspicious soft tissue calcifications. IMPRESSION: Tyvv-we-fcnglloy bilateral hip joint osteoarthritis. No fracture or dislocation. No evidence of avascular necrosis. Dictated by: Hermann Love M.D. on 05/16/2021 at 9:22 Approved by: Hermann Love M.D. on 05/16/2021 at 9:23
[2021-05-16 09:57] LABS: C-Reactive Protein Quant 0.8 mg/dL (<1.0); Rheumatoid Factor < 8.6 IU/mL (<12.0)
[2021-05-16 10:08] LABS: Erythrocyte Sedimentation Rate 10 MM/HR (0-20)
[2021-05-19 18:20] LABS: ANA Screen, IFA Negative (.)
== END ==
PROVIDERS: PCP Nurse Practitioner Family; Referring Provider Nurse Practitioner Family; Visit Provider Nurse Practitioner Family
DX: M25.50 Pain in unspecified joint (principal); M16.0 Bilateral primary osteoarthritis of hip; M17.12 Unilateral primary osteoarthritis, left knee
CPT/HCPCS: 36415; 73502; 73562; 85651; 86038; 86140; 86430

== ENCOUNTER → 2021-08-20 15:58 | Outpatient (CLI) | payer MEDICARE, OTHER, SELFPAY ==
--- NOTE | 2021-08-20 | DI.MG.S_ITS ---
BILATERAL DIGITAL SCREENING MAMMOGRAM 3D/2D WITH CAD: 08/20/2021 CLINICAL: Routine screening. Family history of breast cancer. Comparison is made to exams dated: 07/22/2020 mammogram, 07/21/2019 mammogram, and 07/04/2019 mammogram - [facility]. The tissue of both breasts is heterogeneously dense. This may lower the sensitivity of mammography. Current study was also evaluated with a Computer Aided Detection (CAD) system. There is a stable benign focal asymmetry in the left breast. There also are benign post operative findings in the left breast. No significant masses, calcifications, or other findings are seen in either breast. There has been no significant interval change. IMPRESSION: BENIGN There is no mammographic evidence of malignancy. A 1 year screening mammogram is recommended. This exam was interpreted at Station ID: [id number]. NOTE: For mammograms, a report in lay terms will be sent to the patient. Approximately 15% of breast malignancies will not be visualized mammographically. In the management of a palpable breast mass, a negative mammogram must not discourage biopsy of a clinically suspicious lesion. Electronically Signed By: Ricardo Colón M.D., jr/zurdo:08/20/2021 17:02:25 letter sent: Normal Exam ACR BI-RADS Category 2: Benign Finding(s) 3342F
== END ==
PROVIDERS: PCP Nurse Practitioner Family; Referring Provider Nurse Practitioner Family; Visit Provider Nurse Practitioner Family
DX: Z12.31 Encounter for screening mammogram for malignant neoplasm of breast (principal); Z80.3 Family history of malignant neoplasm of breast
CPT/HCPCS: 77063; 77067

== ENCOUNTER → 2022-07-06 10:41 | Outpatient (CLI) | payer MEDICARE, OTHER, SELFPAY | PROVIDERS: PCP Nurse Practitioner Family; Referring Provider Internal Medicine Nephrology; Visit Provider Internal Medicine Nephrology | DX: Z78.0 Asymptomatic menopausal state; T38.0X5A Adverse effect of glucocorticoids and synthetic analogues, initial encounter; M81.8 Other osteoporosis without current pathological fracture | CPT/HCPCS: 77081; 77086 ==

== ENCOUNTER → 2022-08-29 09:50 | Outpatient (CLI) | payer MEDICARE, OTHER, SELFPAY ==
--- NOTE | 2022-08-29 09:51 | DI.MG.S_ITS ---
BILATERAL DIGITAL SCREENING MAMMOGRAM 3D/2D WITH CAD: 08/29/2022 CLINICAL: Routine screening. Family history of breast cancer. Comparison is made to exams dated: 08/20/2021 mammogram, 07/22/2020 mammogram, 07/04/2019 mammogram, and 06/22/2018 mammogram - [facility]. Both breasts are heterogeneously dense, which may obscure small masses (category c / 51-75% glandular tissue). Current study was also evaluated with a Computer Aided Detection (CAD) system. There are benign post operative findings in the left breast. No significant masses, calcifications, or other findings are seen in either breast. There has been no significant interval change. IMPRESSION: BENIGN There is no mammographic evidence of malignancy. A 1 year screening mammogram is recommended. Based on the Tyrer Cuzick model (a risk assessment model) the patient's lifetime risk is 9.1% and her 10 year risk is 0.0%. According to the ACR, ACS, and NCCN guidelines, an annual breast MRI exam along with mammogram is recommended if the patient's lifetime risk is 20% or greater. This exam was interpreted at Station ID: [id number]. NOTE: For mammograms, a report in lay terms will be sent to the patient. Approximately 15% of breast malignancies will not be visualized mammographically. In the management of a palpable breast mass, a negative mammogram must not discourage biopsy of a clinically suspicious lesion. Electronically Signed By: Clark weston/zurdo:08/31/2022 08:02:07 letter sent: Normal Exam ACR BI-RADS Category 2: Benign Finding(s) 3342F
== END ==
PROVIDERS: PCP Family Medicine; Referring Provider Family Medicine; Visit Provider Family Medicine
DX: Z12.31 Encounter for screening mammogram for malignant neoplasm of breast (principal); Z80.3 Family history of malignant neoplasm of breast
CPT/HCPCS: 77063; 77067

== ENCOUNTER → 2023-05-20 15:23 | Outpatient (CLI) | payer MEDICARE, OTHER, SELFPAY ==
--- NOTE | 2023-05-20 | DI.RAD.S_ITS ---
PROCEDURE: XR HIP W PEL IF DONE LT 2V INDICATIONS: pain of left sacroiliac joint, osteoporosis TECHNIQUE: AP pelvis with lateral view(s) of the left hip(s). COMPARISON: [facility], , XR HIP W PEL IF DONE LT 2V, 05/16/2021, 8:04. FINDINGS: Bones: No fractures or dislocations. Pelvic ring appears intact. No suspicious bony lesions. Mild bilateral hip osteoarthritis. Mild osteoarthritic degenerative changes noted inferior margins of the bilateral sacroiliac joints. Lumbosacral spine fixation hardware. Soft tissues: The visualized bowel gas pattern is normal. No suspicious soft tissue calcifications. 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 No fracture. No acute osseous lesion. If symptoms and/or clinical suspicion for pathology persists, further assessment with advanced imaging (e.g. CT, MRI or bone scan) should be considered. Dictated by: Malu Cooley MD, PhD on 05/20/2023 at 15:50 Approved by: Malu Cooley MD, PhD on 05/20/2023 at 15:51
== END ==
PROVIDERS: PCP Family Medicine; Referring Provider Registered Nurse; Visit Provider Registered Nurse
DX: M16.0 Bilateral primary osteoarthritis of hip (principal); M47.818 Spondylosis without myelopathy or radiculopathy, sacral and sacrococcygeal region; M53.3 Sacrococcygeal disorders, not elsewhere classified; M81.0 Age-related osteoporosis without current pathological fracture
CPT/HCPCS: 73502

== ENCOUNTER → 2023-09-02 14:51 | Outpatient (CLI) | payer MEDICARE, OTHER, SELFPAY ==
--- NOTE | 2023-09-02 | DI.MG.S_ITS ---
BILATERAL DIGITAL SCREENING MAMMOGRAM 3D/2D WITH CAD: 09/02/2023 CLINICAL: Routine screening. Family history of breast cancer. Comparison is made to exams dated: 08/29/2022 mammogram, 08/20/2021 mammogram, and 07/22/2020 mammogram - [facility]. Both breasts are heterogeneously dense, which may obscure small masses (category c / 51-75% glandular tissue). Current study was also evaluated with a Computer Aided Detection (CAD) system. There are benign post operative findings in the left breast. No significant masses, calcifications, or other findings are seen in either breast. There has been no significant interval change. IMPRESSION: BENIGN There is no mammographic evidence of malignancy. A 1 year screening mammogram is recommended. Based on the Tyrer Cuzick model (a risk assessment model) the patient's lifetime risk is 8.1% and her 10 year risk is 0.0%. According to the ACR, ACS, and NCCN guidelines, an annual breast MRI exam along with mammogram is recommended if the patient's lifetime risk is 20% or greater. This exam was interpreted at Station ID: [id number]. NOTE: For mammograms, a report in lay terms will be sent to the patient. Approximately 15% of breast malignancies will not be visualized mammographically. In the management of a palpable breast mass, a negative mammogram must not discourage biopsy of a clinically suspicious lesion. Electronically Signed By: Stanford haque/zurdo:09/03/2023 10:19:10 letter sent: Normal Exam ACR BI-RADS Category 2: Benign Finding(s) 3342F
== END ==
PROVIDERS: PCP Family Medicine; Referring Provider Family Medicine; Visit Provider Family Medicine
DX: Z12.31 Encounter for screening mammogram for malignant neoplasm of breast (principal); Z80.3 Family history of malignant neoplasm of breast
CPT/HCPCS: 77063; 77067

== ENCOUNTER → 2024-04-11 12:42 | Outpatient (ROUT) | payer MEDICARE, OTHER, SELFPAY ==
[2024-04-11 13:47] LABS: BUN Creatinine Ratio 21.3 (6-22); Blood Urea Nitrogen 13 mg/dL (7-17); Calcium 8.5 mg/dL (8.4-10.2); Carbon Dioxide 24 mmol/L (22-32); Chloride 106 mmol/L (98-107); Estimated Glomerular Filt Rate > 60 mL/min (>60); Glucose 89 mg/dL (80-110); HEMOLYSIS < 15 (0-50); Potassium 4.4 mmol/L (3.4-5.1); Sodium 137 mmol/L (137-145)
== END ==
PROVIDERS: PCP Family Medicine; Visit Provider Family Medicine
DX: U07.1 COVID-19 (principal)
CPT/HCPCS: 80048

== ENCOUNTER → 2024-09-21 10:01 | Outpatient (CLI) | payer MEDICARE, OTHER, SELFPAY ==
--- NOTE | 2024-09-21 10:03 | DI.MG.S_ITS ---
BILATERAL DIGITAL SCREENING MAMMOGRAM 3D/2D WITH CAD: 09/21/2024 CLINICAL: Routine screening. Family history of breast cancer. Comparison is made to exams dated: 09/02/2023 mammogram, 08/29/2022 mammogram, and 08/20/2021 mammogram - [facility]. The breasts are heterogeneously dense, which may obscure small masses (category c / 51-75% glandular tissue). Current study was also evaluated with a Computer Aided Detection (CAD) system. There are benign post operative findings in the left breast. No significant masses, calcifications, or other findings are seen in either breast. There has been no significant interval change. IMPRESSION: BENIGN There is no mammographic evidence of malignancy. A 1 year screening mammogram is recommended. Based on the Tyrer Cuzick model (a risk assessment model) the patient's lifetime risk is 7.1% and her 10 year risk is 0.0%. According to the ACR, ACS, and NCCN guidelines, an annual breast MRI exam along with mammogram is recommended if the patient's lifetime risk is 20% or greater. This exam was interpreted at Station ID: [id number]. NOTE: For mammograms, a report in lay terms will be sent to the patient. Approximately 15% of breast malignancies will not be visualized mammographically. In the management of a palpable breast mass, a negative mammogram must not discourage biopsy of a clinically suspicious lesion. Electronically Signed By: Stanford haque/zurdo:09/22/2024 06:39:27 letter sent: Normal Exam ACR BI-RADS Category 2: Benign
== END ==
PROVIDERS: PCP Family Medicine; Referring Provider Family Medicine; Visit Provider Family Medicine
DX: Z12.31 Encounter for screening mammogram for malignant neoplasm of breast (principal); Z80.3 Family history of malignant neoplasm of breast; R92.333 Mammographic heterogeneous density, bilateral breasts
CPT/HCPCS: 77063; 77067